=== PATIENT | male | born 1935 | race Caucasian/White ===

== ENCOUNTER 2018-10-01 08:03 | Inpatient (IN) | payer MEDICARE, BC ==
[2018-10-01] MEDS ORDERED: SODIUM CHLORIDE 0.9% 1,000 ML IV STA ×2 (08:13→09:26)
--- NOTE | 2018-10-01 08:23 | ED ---
General Adult HPI - General Stated complaint: WEAKNESS Time Seen by Provider: 10/01/18 08:13 Source: patient Mode of arrival: EMS Limitations: no limitations - History of Present Illness Initial comments: Dictation was produced using [employer] dictation software. please excuse any grammatical, word or spelling errors. Chief Complaint: 83-year-old male presents with generalized weakness History of Present Illness: 83-year-old male. Over the last several days he's been feeling more and more weak. Patient states that he doesn't have any localizing symptoms. He reports that he doesn't feel like himself. States that his symptoms are insidious. Recently was started on hydrochlorothiazide prescribed by his primary care physician. Patient does see a metal pattern maker. He saw the metal pattern maker because patient had a discrepancy of his blood pressures from his left and his right upper extremity. Patient does have scheduled aortic imaging studies. Patient denies any history of heart attack. He knows that he has a murmur. Patient has history of diabetes, hypercholesterolemia and hypertension. He has history of appendectomy and hernia repair. EMS was called because patient didn't have transportation to get to the emergency department. EMS reports that she was tachycardic however head stable vital signs. He was ambulatory on scene. Patient denies any dyspnea. Denies any pain complaints. The ROS documented in this emergency department record has been reviewed and confirmed by me. Those systems with pertinent positive or negative responses have been documented in the HPI. All other systems are other negative and/or noncontributory. PHYSICAL EXAM: General Impression: Alert and oriented x3, not in acute distress HEENT: Normocephalic atraumatic, extra-ocular movements intact, pupils equal and reactive to light bilaterally, mucous membranes moist. Cardiovascular: Grade 3-6 murmur best heard at the fourth interspace on the left chest with radiating to the cardiac apex Chest: Lungs clear to auscultation bilaterally, no rhonchi, no wheeze, no rales Abdomen: Bowel sounds present, abdomen soft, non-tender, non-distended, no organomegaly Musculoskeletal: Pulses present and equal in all extremities, no peripheral edema Motor: no focal deficits noted Neurological: CN II-XII grossly intact, no focal motor or sensory deficits noted Skin: Intact with no visualized rashes Psych: Normal affect and mood ED course: 83-year-old male presents chief complaint of generalized weakness. Signs upon arrival shows tachycardia in the 130s. EKG shows ventricular rate of 128. Not clearly discernible P waves to suggest sinus tachycardia. He does have findings of T-wave inversions in the high lateral leads and hyperacute T waves in the anterior precordial leads. Suggest cardiac ischemia likely rate dependent. Patient reports having had a echocardiogram in July however he does not know the results of those. Patient is given fluids with improvement of heart rate. Laboratory evaluation obtained. CBC, coag panel, metabolic panels obtained. Patient has sodium 127. No elevated renal markers. Rest of her Bolick panel is unremarkable. Patient has a TSH of 0.363. Urinalysis shows 1+ ketonuria. Patient's clinical pr esentation consistent with hyponatremia likely secondary to dehydration and medication side effect. Given patient's degree of symptoms and metabolic derangement we will plan to have patient admitted to the hospital for inpatient management. Family and patient are understandable and agreeable to disposition. EKG interpretation: Ventricular rate 128, QRS 106, QTC 458. No MA prolongation, no QTC prolongation, nonspecific T-wave changes. High lateral T-wave inversions and anterior precordial hyperacute T waves. - Related Data Home Medications Medication Instructions Recorded Confirmed Aspirin 81 mg PO DAILY 10/01/18 10/01/18 Hydrochlorothiazide 12.5 mg PO DAILY 10/01/18 10/01/18 Lisinopril [Zestril] 20 mg PO DAILY 10/01/18 10/01/18 Simvastatin [Zocor] 20 mg PO HS 10/01/18 10/01/18 metFORMIN HCL [Glucophage] 500 mg PO BID 10/01/18 10/01/18 Allergies Allergy/AdvReac Type Severity Reaction Status Date / Time No Known Allergies Allergy Verified 10/01/18 08:40 Review of Systems ROS Statement: Those systems with pertinent positive or pertinent negative responses have been documented in the HPI. ROS Other: All systems not noted in ROS Statement are negative. Past Medical History Past Medical History: Diabetes Mellitus, Hyperlipidemia, Hypertension Additional Past Medical History / Comment(s): murmur History of Any Multi-Drug Resistant Organisms: None Reported Past Surgical History: Appendectomy, Hernia Repair Past Psychological History: No Psychological Hx Reported Smoking Status: Never smoker Past Alcohol Use History: None Reported Past Drug Use History: None Reported General Exam Limitations: no limitations Course Vital Signs 10/01/18 10/01/18 10/01/18 08:06 08:30 08:35 Temperature 98.7 F Pulse Rate 131 H 113 H Pulse Rate [ 130 H Paint Preparer ] Respiratory 18 18 Rate Blood Pressure 100/84 98/79 O2 Sat by Pulse 99 98 Oximetry 10/01/18 09:00 Temperature Pulse Rate 107 H Pulse Rate [ Paint Preparer ] Respiratory 18 Rate Blood Pressure 98/79 O2 Sat by Pulse 99 Oximetry Medical Decision Making - Lab Data Result diagrams: 10/01/18 08:13 10/01/18 08:13 Lab Results 10/01/18 10/01/18 10/01/18 Range/Units 08:13 08:13 08:13 WBC 7.8 (3.8-10.6) k/uL RBC 5.36 (4.30-5.90) m/uL Hgb 14.8 (13.0-17.5) gm/dL Hct 45.1 (39.0-53.0) % MCV 84.1 (80.0-100.0) fL MCH 27.7 (25.0-35.0) pg MCHC 32.9 (31.0-37.0) g/dL RDW 13.5 (11.5-15.5) % Plt Count 300 (150-450) k/uL Neutrophils % 68 % Lymphocytes % 20 % Monocytes % 6 % Eosinophils % 3 % Basophils % 1 % Neutrophils # 5.3 (1.3-7.7) k/uL Lymphocytes # 1.6 (1.0-4.8) k/uL Monocytes # 0.5 (0-1.0) k/uL Eosinophils # 0.2 (0-0.7) k/uL Basophils # 0.1 (0-0.2) k/uL PT (9.0-12.0) sec INR (<1.2) APTT (22.0-30.0) sec Sodium 127 L (137-145) mmol/L Potassium 4.2 (3.5-5.1) mmol/L Chloride 92 L (98-107) mmol/L Carbon Dioxide 25 (22-30) mmol/L Anion Gap 10 mmol/L BUN 11 (9-20) mg/dL Creatinine 0.57 L (0.66-1.25) mg/dL Est GFR (CKD-EPI)AfAm >90 (>60 ml/min/1.73 sqM) Est GFR (CKD-EPI)NonAf >90 (>60 ml/min/1.73 sqM) Glucose 183 H (74-99) mg/dL Plasma Lactic Acid David (0.7-2.0) mmol/L Calcium 9.3 (8.4-10.2) mg/dL Magnesium 1.8 (1.6-2.3) mg/dL Total Bilirubin 1.7 H (0.2-1.3) mg/dL AST 31 (17-59) U/L ALT 37 (21-72) U/L Alkaline Phosphatase 43 (38-126) U/L Creatine Kinase 221 H (55-170) U/L CK-MB (CK-2) 2.5 H (0.0-2.4) ng/mL Troponin I <0.012 (0.000-0.034) ng/mL NT-Pro-B Natriuret Pep pg/mL Total Protein 6.8 (6.3-8.2) g/dL Albumin 4.2 (3.5-5.0) g/dL TSH 0.363 L (0.465-4.680) mIU/L Urine Color Urine Appearance (Clear) Urine pH (5.0-8.0) Ur Specific [place] (1.001-1.035) Urine Protein (Negative) Urine Glucose (UA) (Negative) Urine Ketones (Negative) Urine Blood (Negative) Urine Nitrite (Negative) Urine Bilirubin (Negative) Urine Urobilinogen (<2.0) mg/dL Ur Leukocyte Esterase (Negative) 10/01/18 10/01/18 10/01/18 Range/Units 08:13 08:13 08:22 WBC (3.8-10.6) k/uL RBC (4.30-5.90) m/uL Hgb (13.0-17.5) gm/dL Hct (39.0-53.0) % MCV (80.0-100.0) fL MCH (25.0-35.0) pg MCHC (31.0-37.0) g/dL RDW (11.5-15.5) % Plt Count (150-450) k/uL Neutrophils % % Lymphocytes % % Monocytes % % Eosinophils % % Basophils % % Neutrophils # (1.3-7.7) k/uL Lymphocytes # (1.0-4.8) k/uL Monocytes # (0-1.0) k/uL Eosinophils # (0-0.7) k/uL Basophils # (0-0.2) k/uL PT 10.5 (9.0-12.0) sec INR 1.0 (<1.2) APTT 27.7 (22.0-30.0) sec Sodium (137-145) mmol/L Potassium (3.5-5.1) mmol/L Chloride (98-107) mmol/L Carbon Dioxide (22-30) mmol/L Anion Gap mmol/L BUN (9-20) mg/dL Creatinine (0.66-1.25) mg/dL Est GFR (CKD-EPI)AfAm (>60 ml/min/1.73 sqM) Est GFR (CKD-EPI)NonAf (>60 ml/min/1.73 sqM) Glucose (74-99) mg/dL Plasma Lactic Acid David 1.4 (0.7-2.0) mmol/L Calcium (8.4-10.2) mg/dL Magnesium (1.6-2.3) mg/dL Total Bilirubin (0.2-1.3) mg/dL AST (17-59) U/L ALT (21-72) U/L Alkaline Phosphatase (38-126) U/L Creatine Kinase (55-170) U/L CK-MB (CK-2) (0.0-2.4) ng/mL Troponin I (0.000-0.034) ng/mL NT-Pro-B Natriuret Pep 116 pg/mL Total Protein (6.3-8.2) g/dL Albumin (3.5-5.0) g/dL TSH (0.465-4.680) mIU/L Urine Color Urine Appearance (Clear) Urine pH (5.0-8.0) Ur Specific [place] (1.001-1.035) Urine Protein (Negative) Urine Glucose (UA) (Negative) Urine Ketones (Negative) Urine Blood (Negative) Urine Nitrite (Negative) Urine Bilirubin (Negative) Urine Urobilinogen (<2.0) mg/dL Ur Leukocyte Esterase (Negative) 03/28/19 Range/Units 09:00 WBC (3.8-10.6) k/uL RBC (4.30-5.90) m/uL Hgb (13.0-17.5) gm/dL Hct (39.0-53.0) % MCV (80.0-100.0) fL MCH (25.0-35.0) pg MCHC (31.0-37.0) g/dL RDW (11.5-15.5) % Plt Count (150-450) k/uL Neutrophils % % Lymphocytes % % Monocytes % % Eosinophils % % Basophils % % Neutrophils # (1.3-7.7) k/uL Lymphocytes # (1.0-4.8) k/uL Monocytes # (0-1.0) k/uL Eosinophils # (0-0.7) k/uL Basophils # (0-0.2) k/uL PT (9.0-12.0) sec INR (<1.2) APTT (22.0-30.0) sec Sodium (137-145) mmol/L Potassium (3.5-5.1) mmol/L Chloride (98-107) mmol/L Carbon Dioxide (22-30) mmol/L Anion Gap mmol/L BUN (9-20) mg/dL Creatinine (0.66-1.25) mg/dL Est GFR (CKD-EPI)AfAm (>60 ml/min/1.73 sqM) Est GFR (CKD-EPI)NonAf (>60 ml/min/1.73 sqM) Glucose (74-99) mg/dL Plasma Lactic Acid David (0.7-2.0) mmol/L Calcium (8.4-10.2) mg/dL Magnesium (1.6-2.3) mg/dL Total Bilirubin (0.2-1.3) mg/dL AST (17-59) U/L ALT (21-72) U/L Alkaline Phosphatase (38-126) U/L Creatine Kinase (55-170) U/L CK-MB (CK-2) (0.0-2.4) ng/mL Troponin I (0.000-0.034) ng/mL NT-Pro-B Natriuret Pep pg/mL Total Protein (6.3-8.2) g/dL Albumin (3.5-5.0) g/dL TSH (0.465-4.680) mIU/L Urine Color Light Yellow Urine Appearance Clear (Clear) Urine pH 7.5 (5.0-8.0) Ur Specific [place] 1.005 (1.001-1.035) Urine Protein Trace H (Negative) Urine Glucose (UA) Negative (Negative) Urine Ketones 1+ H (Negative) Urine Blood Negative (Negative) Urine Nitrite Negative (Negative) Urine Bilirubin Negative (Negative) Urine Urobilinogen <2.0 (<2.0) mg/dL Ur Leukocyte Esterase Negative (Negative) Disposition Clinical Impression: Hyponatremia Disposition: ADMITTED IP TO THIS HOSP Condition: Fair Referrals: Maribeth Butcher MD [Primary Care Provider] - 1-2 days Decision Time: 10:40
[2018-10-01 08:51] LABS: Basophils # (A) 0.1 k/uL (0-0.2); Basophils % (A) 1 %; Eosinophils # (A) 0.2 k/uL (0-0.7); Eosinophils % (A) 3 %; HCT 45.1 % (39.0-53.0); HGB 14.8 gm/dL (13.0-17.5); Lymphocytes # (A) 1.6 k/uL (1.0-4.8); Lymphocytes % (A) 20 %; MCH 27.7 pg (25.0-35.0); MCHC 32.9 g/dL (31.0-37.0); MCV 84.1 fL (80.0-100.0); Mean Platelet Volume 6.7; Monocytes # (A) 0.5 k/uL (0-1.0); Monocytes % (A) 6 %; Neutrophils # (A) 5.3 k/uL (1.3-7.7); Neutrophils % (A) 68 %; Platelet Count 300 k/uL (150-450); RBC 5.36 m/uL (4.30-5.90); RDW 13.5 % (11.5-15.5); WBC 7.8 k/uL (3.8-10.6)
[2018-10-01 08:59] LABS: Partial Thromboplastin Time 27.7 sec (22.0-30.0); Prothrombin Time 10.5 sec (9.0-12.0)
--- NOTE | 2018-10-01 08:59 | XR ---
EXAMINATION TYPE: XR chest 2V DATE OF EXAM: 10/01/2018 COMPARISON: NONE HISTORY: Shortness of breath TECHNIQUE: Frontal and lateral views of the chest are obtained. FINDINGS: Scattered senescent parenchymal changes noted. Hyperinflation compatible with COPD. No evidence for infiltrate. No evidence for atelectasis. Heart size is stable. Mediastinal structures are stable and grossly unremarkable. No evidence for hilar prominence. Degenerative changes dorsal spine. IMPRESSION: 1. No evidence for acute pulmonary disease.
[2018-10-01 09:14] LABS: ALT 37 U/L (21-72); AST 31 U/L (17-59); Albumin 4.2 g/dL (3.5-5.0); Alkaline Phosphatase 43 U/L (38-126); Anion Gap 10 mmol/L; Blood Urea Nitrogen 11 mg/dL (9-20); Calcium 9.3 mg/dL (8.4-10.2); Carbon Dioxide 25 mmol/L (22-30); Chloride 92 mmol/L (98-107); Creatine Kinase 221 U/L (55-170); Glucose 183 mg/dL (74-99); Magnesium 1.8 mg/dL (1.6-2.3); Potassium 4.2 mmol/L (3.5-5.1); Sodium 127 mmol/L (137-145); Total Bilirubin 1.7 mg/dL (0.2-1.3); Total Protein 6.8 g/dL (6.3-8.2)
[2018-10-01 09:20] LABS: Appearance,Urine Clear (Clear); Bilirubin,Urine Negative (Negative); Blood,Urine Negative (Negative); Color,Urine Light Yellow; Glucose,Urine (UA) Negative (Negative); Ketones,Urine 1+ (Negative); Leukocyte Esterase,Urine Negative (Negative); Nitrite,Urine Negative (Negative); PH, Urine 7.5 (5.0-8.0); Protein,Urine Trace (Negative); Specific Gravity,Urine 1.005 (1.001-1.035); Urobilinogen,Urine <2.0 mg/dL (<2.0)
[2018-10-01 09:53] LABS: Creatine Kinase MB 2.5 ng/mL (0.0-2.4); Troponin I <0.012 ng/mL (0.000-0.034)
[2018-10-01] MEDS ORDERED: NALOXONE 0.4 MG/ML 1 ML VIAL IV PRN (10:36)
[2018-10-01] MEDS ORDERED: ONDANSETRON 4 MG/2 ML VIAL IVP PRN (10:36)
[2018-10-01] MEDS: SODIUM CHLORIDE 0.9% 1,000 ML IV SCH ×2 (11:14→22:12)
[2018-10-01] MEDS ORDERED: ACETAMINOPHEN TAB 500 MG TAB PO PRN (14:18)
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
[2018-10-01 16:59] LABS: Glucose,Whole Blood 125 mg/dL (75-99)
[2018-10-01] MEDS: INSULIN ASPART (NovoLOG) 100 UNIT/ML VIAL SQ SCH ×2 (16:59→22:11)
[2018-10-01] MEDS: ASPIRIN 81 MG PO SCH (17:02)
[2018-10-01 20:44] LABS: Glucose,Whole Blood 154 mg/dL (75-99)
[2018-10-01] MEDS: metFORMIN 500 MG TAB PO SCH (22:10)
[2018-10-01] MEDS: ATORVASTATIN 10 MG TAB PO SCH (22:11)
[2018-10-02 06:58] LABS: Glucose,Whole Blood 126 mg/dL (75-99)
[2018-10-02 08:29] LABS: Basophils # (A) 0.1 k/uL (0-0.2); Basophils % (A) 2 %; Eosinophils # (A) 0.2 k/uL (0-0.7); Eosinophils % (A) 3 %; HCT 41.7 % (39.0-53.0); HGB 14.7 gm/dL (13.0-17.5); Lymphocytes # (A) 2.1 k/uL (1.0-4.8); Lymphocytes % (A) 27 %; MCH 29.1 pg (25.0-35.0); MCHC 35.2 g/dL (31.0-37.0); MCV 82.7 fL (80.0-100.0); Mean Platelet Volume 6.1; Monocytes # (A) 0.6 k/uL (0-1.0); Monocytes % (A) 8 %; Neutrophils # (A) 4.8 k/uL (1.3-7.7); Neutrophils % (A) 59 %; Platelet Count 282 k/uL (150-450); RBC 5.04 m/uL (4.30-5.90); RDW 12.9 % (11.5-15.5)
[2018-10-02 08:38] LABS: ALT 32 U/L (21-72); AST 26 U/L (17-59); Albumin 3.9 g/dL (3.5-5.0); Alkaline Phosphatase 39 U/L (38-126); Anion Gap 9 mmol/L; Blood Urea Nitrogen 11 mg/dL (9-20); Calcium 9.2 mg/dL (8.4-10.2); Carbon Dioxide 24 mmol/L (22-30); Chloride 100 mmol/L (98-107); Glucose 125 mg/dL (74-99); Potassium 4.5 mmol/L (3.5-5.1); Sodium 133 mmol/L (137-145); Total Bilirubin 1.4 mg/dL (0.2-1.3); Total Protein 6.6 g/dL (6.3-8.2)
[2018-10-02] MEDS: INSULIN ASPART (NovoLOG) 100 UNIT/ML VIAL SQ SCH ×4 (09:39→20:51)
[2018-10-02] MEDS: ENOXAPARIN 40 MG/0.4 ML SYRINGE SQ SCH (09:40)
[2018-10-02] MEDS: ASPIRIN 81 MG PO SCH (09:40)
[2018-10-02] MEDS: FAMOTIDINE 20 MG TAB PO SCH (09:42)
[2018-10-02] MEDS: metFORMIN 500 MG TAB PO SCH ×2 (09:50→20:21)
[2018-10-02] MEDS: SODIUM CHLORIDE 0.9% 1,000 ML IV SCH ×2 (11:01→14:02)
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
[2018-10-02] MEDS: LISINOPRIL 20 MG TAB PO SCH (11:17)
[2018-10-02 11:54] LABS: Glucose,Whole Blood 143 mg/dL (75-99)
--- NOTE | 2018-10-02 13:14 | P.PN ---
Subjective Progress Note Date: 10/02/18 This is a 83-year-old male, patient of Dr. [place]. He has a known past medical history of diabetes mellitus type 2, hypertension and hyperlipidemia. Patient presents to the emergency room with complaints of "just not feeling right". Patient reports that symptoms started early this morning. He will his know and they called EMS to bring him in. They took vitals at home patient reports that his heart rate was elevated and blood pressure elevated. He was recently started on hydrochlorothiazide by his presentation designer to help with his elevated blood pressures. Patient reports that there have been a discrepancy in his blood pressures on the left and right arm. Per patient the right arm blood pr essure was different because of an injury to the shoulder. Patient denies any fever, chills, sweats, nausea or vomiting, bowel movement changes or urinary symptoms. Denies any chest pain or shortness of breath. He was found to have a sodium level of 127. Hyponatremia is likely related to the hydrochlorothiazide and dehydration. He was given IV fluid bolus in the ER and is currently on normal saline and a 110 cc per hour. Nephrology has been consulted. EKG had shown sinus tachycardia with a heart rate in the 130s and patient was hypotensive. Blood pressure and heart rate are showing improvement with IV fluid bolus. Cardiology has been consulted. TSH level is low at 0.363. Patient is not on any thyroid medication. EKG had shown accelerated junctional rhythm heart of 128 chest x-rays negative. Cardiology and nephrology consult. Troponin is negative urinalysis. 10/02/2018 patient's sodium level is improving. Sodium level is 133. Is currently on IV fluids. Also on fluid restrictions. Patient evaluated by nephrology. Patient's blood pressure has been elevated. His lisinopril has been restarted Norvasc was added by cardiology. Heart rate is controlled. Patient reports that he is feeling better. Denies any chest pain or shortness of breath. Denies any nausea or vomiting. Reports having bowel movements, denies any difficulty urinating. Objective - Vital Signs Vital signs: Vital Signs Temp 97.4 F L 10/02/18 04:51 Pulse 104 H 10/02/18 11:17 Resp 16 10/02/18 04:51 BP 157/71 10/02/18 11:17 Pulse Ox 98 10/02/18 04:51 Intake & Output 10/01/18 10/02/18 10/02/18 18:59 06:59 18:59 Intake Total 600 660 500 Output Total 1100 1200 Balance 600 -440 -700 Weight 74.843 kg Intake: Intake, IV Titration 600 Amount Sodium Chloride 0.9% 1, 600 000 ml @ 75 mls/hr IV . [id number] [facility] Rx#:[id number] Oral 660 500 Output: Urine 1100 1200 Other: Voiding Method Urinal # Voids 2 - Exam Head normocephalic Neck supple Lungs clear to auscultation bilaterally no wheezing or crackles Heart regular rate and rhythm S1-S2, no rub or gallop Abdomen is soft nontender nondistended positive bowel sounds no hepatosplenomegaly Extremities no edema Neuro alert and orientated to 3 - Labs CBC & Chem 7: 10/02/18 07:04 10/02/18 07:04 Labs: Abnormal Lab Results - Last 24 Hours (Table) 10/01/18 10/01/18 10/02/18 Range/Units 16:56 20:30 06:57 Sodium (137-145) mmol/L Creatinine (0.66-1.25) mg/dL Glucose (74-99) mg/dL POC Glucose (mg/dL) 125 H 154 H 126 H (75-99) mg/dL Total Bilirubin (0.2-1.3) mg/dL 10/02/18 10/02/18 Range/Units 07:04 11:54 Sodium 133 L (137-145) mmol/L Creatinine 0.58 L (0.66-1.25) mg/dL Glucose 125 H (74-99) mg/dL POC Glucose (mg/dL) 143 H (75-99) mg/dL Total Bilirubin 1.4 H (0.2-1.3) mg/dL Assessment and Plan Assessment: 1. Hypovolemic Hyponatremia: Secondary to the hydrochlorothiazide. Improving with IV fluids. Sodium 133. Seen by nephrology. Appreciate their input. Currently on normal saline at 75 mL an hour. Continue 1200 mL fluid restriction. 2. Sinus tachycardia: Cardiology consulted. Heart rate has shown improvement with IV fluids. Continue to monitor 3. Hyperthyroidism with TSH level of 0.363. Patient will follow-up with endocrinology in the outpatient setting 4. Diabetes mellitus type 2: Resume metformin and add sliding scale coverage acute Accu-Cheks every before meals and at bedtime. Check A1c 5. Essential hypertension : Blood pressures have been elevated. Nephrology has restarted the lisinopril. Cardiology has added Norvasc. Continue to monitor 6. Hyperlipidemia 7. Hypotension: Resolved. Possible discharge tomorrow GI prophylaxis Pepcid and DVT prophylaxis Lovenox I performed an examination of the patient and discussed their management with the physician Coin Rolling Machine Operator. I have reviewed the Physician Coin Rolling Machine Operator's notes and agree with the documented findings and plan of care
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
[2018-10-02] MEDS: amLODIPine 5 MG TAB PO SCH (16:00)
[2018-10-02 17:03] LABS: Glucose,Whole Blood 129 mg/dL (75-99)
[2018-10-02 20:22] LABS: Glucose,Whole Blood 173 mg/dL (75-99)
[2018-10-02] MEDS: ATORVASTATIN 10 MG TAB PO SCH (20:22)
[2018-10-02 21:13] LABS: Hemoglobin A1C 6.8 % (4.0-6.0)
[2018-10-03] MEDS: SODIUM CHLORIDE 0.9% 1,000 ML IV SCH (02:11)
[2018-10-03 06:46] LABS: Glucose,Whole Blood 137 mg/dL (75-99)
--- NOTE | 2018-10-03 08:01 | ECHOF ---
Referral Reason:ekg changes MEASUREMENTS -------- HEIGHT: 175.3 cm WEIGHT: 74.8 kg BP: IVSd: 1.1 cm (0.6 - 1.1) LVIDd: 2.9 cm (3.9 - 5.3) LVPWd: 1.1 cm (0.6 - 1.1) IVSs: 1.3 cm LVIDs: 2.2 cm LVPWs: 1.2 cm LAESV Index (A-L): 25.91 ml/m Ao Diam: 3.4 cm (2.0 - 3.7) AV Cusp: 1.5 cm (1.5 - 2.6) LA Diam: 4.0 cm (2.7 - 3.8) MV EXCURSION: 17.007 mm (> 18.000) MV EF SLOPE: 68 mm/s (70 - 150) EPSS: 0.3 cm MV E Cae: 1.44 m/s MV DecT: 159 ms MV A Ace: 0.40 m/s MV E/A Ratio: 3.59 RAP: 5.00 mmHg RVSP: 33.46 mmHg FINDINGS -------- Sinus rhythm. This was a technically adequate study. LV size, wall thickness and systolic function are normal, with an EF greater than 55%. The left isis tricular size is normal. The right ventricle is normal in size. The left atrial size is normal. Normal LA size by volume 22+/-6 ml/m2. The right atrial size is normal. There is mild aortic valve sclerosis. There is no evidence of aortic regurgitation. Mild mitral annular calcification present. Mild mitral regurgitation is present. Mild tricuspid regurgitation present. There is no evidence of pulmonary hypertension. The right v entricular systolic pressure, as measured by Doppler, is 33.46mmHg. There is no pulmonic regurgitation present. The aortic root size is normal. There is no pericardial effusion. CONCLUSIONS -------- 1. LV size, wall thickness and systolic function are normal, with an EF greater than 55%. 2. The left ventricular size is normal. 3. The right ventricle is normal in size. 4. The left atrial size is normal. 5. The right atrial size is normal. 6. There is mild aortic valve sclerosis. 7. Mild mitral annular calcification present. 8. Mild mitral regurgitation is present. 9. Mild tricuspid regurgitation present. 10. The right ventricular systolic pressure, as measured by Doppler, is 33.46mmHg. 11. There is no pulmonic regurgitation present. 12. The aortic root size is normal. 13. There is no pericardial effusion. ACCESS CONTROL SPECIALIST: Teresita Romero RDCS
[2018-10-03] MEDS: ASPIRIN 81 MG PO SCH (08:29)
[2018-10-03] MEDS: INSULIN ASPART (NovoLOG) 100 UNIT/ML VIAL SQ SCH ×4 (08:29→21:10)
[2018-10-03] MEDS: ENOXAPARIN 40 MG/0.4 ML SYRINGE SQ SCH (08:29)
[2018-10-03] MEDS: metFORMIN 500 MG TAB PO SCH ×2 (08:29→21:10)
[2018-10-03] MEDS: LISINOPRIL 20 MG TAB PO SCH (08:29)
[2018-10-03] MEDS: FAMOTIDINE 20 MG TAB PO SCH (08:31)
[2018-10-03 09:40] LABS: Basophils # (A) 0.1 k/uL (0-0.2); Basophils % (A) 1 %; Eosinophils # (A) 0.2 k/uL (0-0.7); Eosinophils % (A) 2 %; HGB 14.5 gm/dL (13.0-17.5); Lymphocytes # (A) 1.2 k/uL (1.0-4.8); Lymphocytes % (A) 15 %; MCH 27.6 pg (25.0-35.0); MCV 83.6 fL (80.0-100.0); Mean Platelet Volume 6.6; Monocytes # (A) 0.5 k/uL (0-1.0); Monocytes % (A) 6 %; Neutrophils # (A) 5.9 k/uL (1.3-7.7); Neutrophils % (A) 75 %; Platelet Count 302 k/uL (150-450); RBC 5.27 m/uL (4.30-5.90); RDW 13.9 % (11.5-15.5); WBC 7.8 k/uL (3.8-10.6)
[2018-10-03 09:46] LABS: ALT 27 U/L (21-72); AST 19 U/L (17-59); Albumin 3.8 g/dL (3.5-5.0); Alkaline Phosphatase 36 U/L (38-126); Anion Gap 11 mmol/L; Blood Urea Nitrogen 11 mg/dL (9-20); Calcium 9.4 mg/dL (8.4-10.2); Carbon Dioxide 23 mmol/L (22-30); Chloride 98 mmol/L (98-107); Glucose 193 mg/dL (74-99); Magnesium 1.8 mg/dL (1.6-2.3); Potassium 4.4 mmol/L (3.5-5.1); Sodium 132 mmol/L (137-145); Total Bilirubin 1.1 mg/dL (0.2-1.3); Total Protein 6.3 g/dL (6.3-8.2)
--- NOTE | 2018-10-03 10:46 | P.PN ---
<Carol Calle A - Last Filed: 10/03/18 11:41> Subjective Progress Note Date: 10/03/18 This is a pleasant 83-year-old male past medical history significant for hypertension, dyslipidemia and diabetes mellitus. He follows in the office with Dr. Francisco. We have asked to see him in consultation secondary to ta chycardia. He presented to the hospital yesterday via EMS after feeling generally unwell, fatigued and not himself he denies any symptoms of chest discomfort, shortness of breath, dizziness, palpitations, nausea, vomiting or diaphoresis. Upon arrival to the emergency department he was found to be hyponatremic. Sodium was 147. Last week he saw Dr. Francisco in the office secondary to uncontrolled hypertension and was started on hydrochlorothiazide. He is seen and examined resting comfortably in bed in no acute distress. He states he feels back to his baseline level of functioning. Lab repeat today shows a sodium of 133. Potassium 4.5, creatinine 0.58, magnesium 1.8, hemoglobin 14.7, platelets 282, TSH 0.363 and cardiac enzymes negative 1. Hydrochlorothiazide has been discontinued since admission and he has been started on amlodipine. Blood pressure 155/71 heart rate 104. EKG on admission reveals sinus tachycardia with T-wave inversions laterally with peaked anterior T-waves. Chest xray negative for an acute cardiopulmonary process. 10/03: Repeat lab work reveals sodium 132, potassium 4.4, chloride 98, CO2 23, BUN 11, creatinine 0.57. CBC within normal limits. Liver function tests are within normal limits. Patient's been afebrile, heart rate in the 80s to 90s and blood pressure this 40 179/76. Echocardiogram reveals EF of 55%, mild mitral regurgitation, mild tricuspid regurgitation. Repeat troponin is 0.022. Blood pressure remained elevated as patient has refused to take amlodipine as he is concerned about interaction with simvastatin. We will plan to change simvastatin to atorvastatin and patient will be able to take Norvasc. GENERAL: This is a 83-year-old male in no apparent distress at the time of my examination. HEENT: Head is atraumatic, normocephalic. Pupils are equal, round. Sclerae anicteric. Conjunctivae are clear. Mucous membranes of the mouth are moist. Neck is supple. There is no jugular venous distention. No carotid bruit is heard. LUNGS: Clear to auscultation no wheezes, rales or rhonchi. No chest wall tenderness is noted on palpation or with deep breathing. HEART: Regular rate and rhythm without murmurs, rubs or gallops. S1 and S2 heard. ABDOMEN: Soft, nontender. Bowel sounds are heard. No organomegaly noted. EXTREMITIES: No evidence of peripheral edema and no calf tenderness noted. VASCULAR: Radial and dorsalis pedis pulses palpated, no evidence of clubbing. NEUROLOGIC: Patient is awake, alert and oriented x3. ASSESSMENT Hyponatremia secondary to HCTZ, improved Acute dehydration Hypertension Dyslipidemia Diabetes mellitus PLAN Continue amlodipine. Simvastatin will be changed to atorvastatin at home. Monitor blood pressure overnight and possible discharge tomorrow Follow-up in the office with Dr. Francisco in 2-3 weeks Thank you kindly for this consultation. Nurse Practitioner note has been reviewed, I agree with a documented findings and plan of care. Patient was seen and examined. / Objective - Vital Signs Vital signs: Vital Signs Temp 97.3 F L 10/03/18 05:00 Pulse 80 10/03/18 05:00 Resp 18 10/03/18 08:00 BP 179/76 10/03/18 05:00 Pulse Ox 98 10/03/18 05:00 Intake & Output 10/02/18 10/03/18 10/03/18 18:59 06:59 18:59 Intake Total 500 1552.5 Output Total 1200 1425 250 Balance -700 127.5 -250 Intake: IV 322.5 Invasive Line 1 322.5 Intake, IV Titration 300 Amount Sodium Chloride 0.9% 1, 300 000 ml @ 75 mls/hr IV . [id number] [facility] Rx#:[id number] Oral 500 930 Output: Urine 1200 1425 250 Other: Voiding Method Urinal # Voids 1 # Bowel Movements 2 - Labs CBC & Chem 7: 10/03/18 09:02 10/03/18 09:02 Labs: Abnormal Lab Results - Last 24 Hours (Table) 10/02/18 10/02/18 10/02/18 Range/Units 11:54 13:19 17:01 Sodium (137-145) mmol/L Creatinine (0.66-1.25) mg/dL Glucose (74-99) mg/dL POC Glucose (mg/dL) 143 H 129 H (75-99) mg/dL Hemoglobin A1c 6.8 H (4.0-6.0) % Alkaline Phosphatase (38-126) U/L 10/02/18 10/03/18 10/03/18 Range/Units 20:18 06:45 09:02 Sodium 132 L (137-145) mmol/L Creatinine 0.57 L (0.66-1.25) mg/dL Glucose 193 H (74-99) mg/dL POC Glucose (mg/dL) 173 H 137 H (75-99) mg/dL Hemoglobin A1c (4.0-6.0) % Alkaline Phosphatase 36 L (38-126) U/L <Noe Francisco - Last Filed: 10/04/18 11:54> Objective - Vital Signs Vital signs: Vital Signs Temp 97.9 F 10/04/18 05:00 Pulse 87 10/04/18 05:00 Resp 18 10/04/18 05:00 BP 168/76 10/04/18 05:00 Pulse Ox 97 10/04/18 05:00 Intake & Output 10/03/18 10/04/18 10/04/18 18:59 06:59 18:59 Intake Total 120 Output Total 850 900 Balance -850 -780 Intake: Oral 120 Output: Urine 850 900 Other: Voiding Method Urinal - Labs CBC & Chem 7: 10/04/18 06:33 10/04/18 06:33 Labs: Abnormal Lab Results - Last 24 Hours (Table) 10/03/18 10/03/18 10/04/18 Range/Units 16:55 20:32 06:33 Sodium 132 L (137-145) mmol/L Chloride 97 L (98-107) mmol/L Creatinine 0.57 L (0.66-1.25) mg/dL Glucose 114 H (74-99) mg/dL POC Glucose (mg/dL) 142 H 116 H (75-99) mg/dL Total Bilirubin 1.6 H (0.2-1.3) mg/dL Alkaline Phosphatase 36 L (38-126) U/L 10/04/18 10/04/18 Range/Units 06:54 11:30 Sodium (137-145) mmol/L Chloride (98-107) mmol/L Creatinine (0.66-1.25) mg/dL Glucose (74-99) mg/dL POC Glucose (mg/dL) 119 H 122 H (75-99) mg/dL Total Bilirubin (0.2-1.3) mg/dL Alkaline Phosphatase (38-126) U/L
[2018-10-03] MEDS: amLODIPine 5 MG TAB PO SCH ×2 (11:09→12:37)
[2018-10-03 11:25] LABS: Glucose,Whole Blood 176 mg/dL (75-99)
--- NOTE | 2018-10-03 15:52 | P.PN ---
Subjective Progress Note Date: 10/03/18 This is a 83-year-old male, patient of Dr. Montana. He has a known past medical history of diabetes mellitus type 2, hypertension and hyperlipidemia. Patient presents to the emergency room with complaints of "just not feeling right". Patient reports that symptoms started early this morning. He will his know and they called EMS to bring him in. They took vitals at home patient reports that his heart rate was elevated and blood pressure elevated. He was recently started on hydrochlorothiazide by his hemmer chainstitch to help with his elevated blood pressures. Patient reports that there have been a discrepancy in his blood pressures on the left and right arm. Per patient the right arm blood pr essure was different because of an injury to the shoulder. Patient denies any fever, chills, sweats, nausea or vomiting, bowel movement changes or urinary symptoms. Denies any chest pain or shortness of breath. He was found to have a sodium level of 127. Hyponatremia is likely related to the hydrochlorothiazide and dehydration. He was given IV fluid bolus in the ER and is currently on normal saline and a 110 cc per hour. Nephrology has been consulted. EKG had shown sinus tachycardia with a heart rate in the 130s and patient was hypotensive. Blood pressure and heart rate are showing improvement with IV fluid bolus. Cardiology has been consulted. TSH level is low at 0.363. Patient is not on any thyroid medication. EKG had shown accelerated junctional rhythm heart of 128 chest x-rays negative. Cardiology and nephrology consult. Troponin is negative urinalysis. 10/02/2018 patient's sodium level is improving. Sodium level is 133. Is currently on IV fluids. Also on fluid restrictions. Patient evaluated by nephrology. Patient's blood pressure has been elevated. His lisinopril has been restarted Norvasc was added by cardiology. Heart rate is controlled. Patient reports that he is feeling better. Denies any chest pain or shortness of breath. Denies any nausea or vomiting. Reports having bowel movements, denies any difficulty urinating. On 10/03/2018 patient is alert and oriented 3 sodium is 132 blood pressure is significantly elevated Norvasc was added to regimen by cardiology patient is denying any symptoms there is no fever or chills no headache or dizziness no chest pain no shortness of breath no cough no nausea or vomiting no abdominal pain no diarrhea and no urinary symptoms Objective - Vital Signs Vital signs: Vital Signs Temp 97.7 F 10/03/18 12:41 Pulse 73 10/03/18 12:41 Resp 16 10/03/18 12:41 BP 169/77 10/03/18 12:41 Pulse Ox 98 10/03/18 12:41 Intake & Output 10/02/18 10/03/18 10/03/18 18:59 06:59 18:59 Intake Total 500 1552.5 Output Total 1200 1425 850 Balance -700 127.5 -850 Intake: IV 322.5 Invasive Line 1 322.5 Intake, IV Titration 300 Amount Sodium Chloride 0.9% 1, 300 000 ml @ 75 mls/hr IV . [id number] [facility] Rx#:[id number] Oral 500 930 Output: Urine 1200 1425 850 Other: Voiding Method Urinal # Voids 1 # Bowel Movements 2 - Exam Head normocephalic and atraumatic Neck supple no JVD no goiter Lungs clear to auscultation bilaterally no wheezing or crackles Heart regular rate and rhythm S1-S2, no rub or gallop Abdomen is soft nontender nondistended positive bowel sounds no hepatosplenomegaly Extremities no edema no cyanosis or clubbing Neuro alert and orientated to 3 no gross focal deficit - Labs CBC & Chem 7: 10/03/18 09:02 10/03/18 09:02 Labs: Abnormal Lab Results - Last 24 Hours (Table) 10/02/18 10/02/18 10/02/18 Range/Units 13:19 17:01 20:18 Sodium (137-145) mmol/L Creatinine (0.66-1.25) mg/dL Glucose (74-99) mg/dL POC Glucose (mg/dL) 129 H 173 H (75-99) mg/dL Hemoglobin A1c 6.8 H (4.0-6.0) % Alkaline Phosphatase (38-126) U/L 10/03/18 10/03/18 10/03/18 Range/Units 06:45 09:02 11:24 Sodium 132 L (137-145) mmol/L Creatinine 0.57 L (0.66-1.25) mg/dL Glucose 193 H (74-99) mg/dL POC Glucose (mg/dL) 137 H 176 H (75-99) mg/dL Hemoglobin A1c (4.0-6.0) % Alkaline Phosphatase 36 L (38-126) U/L Assessment and Plan Plan: 1. Hypovolemic Hyponatremia: Secondary to the hydrochlorothiazide. Improving with IV fluids. Sodium 133. Seen by nephrology. Appreciate their input. Currently on normal saline at 75 mL an hour. Continue 1200 mL fluid restriction. 2. Sinus tachycardia: Cardiology consulted. Heart rate has shown improvement with IV fluids. Continue to monitor 3. Hyperthyroidism with TSH level of 0.363. Patient will follow-up with endocrinology in the outpatient setting 4. Diabetes mellitus type 2: Resume metformin and add sliding scale coverage acute Accu-Cheks every before meals and at bedtime. Check A1c 5. Essential hypertension : Blood pressures have been elevated. Nephrology has restarted the lisinopril. Cardiology has added Norvasc. Continue to monitor 6. Hyperlipidemia 7. Hypotension: Resolved. Possible discharge tomorrow GI prophylaxis Pepcid and DVT prophylaxis Lovenox
--- NOTE | 2018-10-03 16:44 | P.PN ---
Subjective Progress Note Date: 10/03/18 Seen and examined for the follow-up of hyponatremia. Sodium stable at 132. Unknown baseline sodium. 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 Objective - Vital Signs Vital signs: Vital Signs Temp 97.7 F 10/03/18 12:41 Pulse 73 10/03/18 12:41 Resp 16 10/03/18 12:41 BP 169/77 10/03/18 12:41 Pulse Ox 98 10/03/18 12:41 Intake & Output 10/02/18 10/03/18 10/03/18 18:59 06:59 18:59 Intake Total 500 1552.5 Output Total 1200 1425 850 Balance -700 127.5 -850 Intake: IV 322.5 Invasive Line 1 322.5 Intake, IV Titration 300 Amount Sodium Chloride 0.9% 1, 300 000 ml @ 75 mls/hr IV . [id number] [facility] Rx#:[id number] Oral 500 930 Output: Urine 1200 1425 850 Other: Voiding Method Urinal # Voids 1 # Bowel Movements 2 - Exam No acute distress S1-S2 heard Lungs clear No edema - Labs CBC & Chem 7: 10/03/18 09:02 10/03/18 09:02 Labs: Abnormal Lab Results - Last 24 Hours (Table) 10/02/18 10/02/18 10/02/18 Range/Units 13:19 17:01 20:18 Sodium (137-145) mmol/L Creatinine (0.66-1.25) mg/dL Glucose (74-99) mg/dL POC Glucose (mg/dL) 129 H 173 H (75-99) mg/dL Hemoglobin A1c 6.8 H (4.0-6.0) % Alkaline Phosphatase (38-126) U/L 10/03/18 10/03/18 10/03/18 Range/Units 06:45 09:02 11:24 Sodium 132 L (137-145) mmol/L Creatinine 0.57 L (0.66-1.25) mg/dL Glucose 193 H (74-99) mg/dL POC Glucose (mg/dL) 137 H 176 H (75-99) mg/dL Hemoglobin A1c (4.0-6.0) % Alkaline Phosphatase 36 L (38-126) U/L Assessment and Plan Assessment: #1 acute on chronic hyponatremia. 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 #2 benign essential hypertension. #3 diabetes Plan: #1 stop IV fluids. #2 fluid restriction 40 ounces per day at discharge #3 avoid hydrochlorothiazide at discharge. #4 agree with amlodipine.
[2018-10-03 16:56] LABS: Glucose,Whole Blood 142 mg/dL (75-99)
[2018-10-03 20:33] LABS: Glucose,Whole Blood 116 mg/dL (75-99)
[2018-10-03] MEDS: ATORVASTATIN 10 MG TAB PO SCH (21:10)
[2018-10-04 05:30] VITALS: TEMP 97.9
[2018-10-04 06:55] LABS: Glucose,Whole Blood 119 mg/dL (75-99)
[2018-10-04] MEDS: INSULIN ASPART (NovoLOG) 100 UNIT/ML VIAL SQ SCH ×2 (07:19→11:43)
[2018-10-04] MEDS: FAMOTIDINE 20 MG TAB PO SCH (08:12)
[2018-10-04] MEDS: ASPIRIN 81 MG PO SCH (08:12)
[2018-10-04] MEDS: LISINOPRIL 20 MG TAB PO SCH (08:12)
[2018-10-04] MEDS: metFORMIN 500 MG TAB PO SCH (08:12)
[2018-10-04] MEDS: ENOXAPARIN 40 MG/0.4 ML SYRINGE SQ SCH (08:12)
[2018-10-04] MEDS: amLODIPine 5 MG TAB PO SCH (08:12)
[2018-10-04 08:13] LABS: ALT 27 U/L (21-72); AST 21 U/L (17-59); Albumin 4.1 g/dL (3.5-5.0); Alkaline Phosphatase 36 U/L (38-126); Anion Gap 9 mmol/L; Blood Urea Nitrogen 15 mg/dL (9-20); Calcium 9.6 mg/dL (8.4-10.2); Carbon Dioxide 26 mmol/L (22-30); Chloride 97 mmol/L (98-107); Glucose 114 mg/dL (74-99); Potassium 4.6 mmol/L (3.5-5.1); Sodium 132 mmol/L (137-145); Total Bilirubin 1.6 mg/dL (0.2-1.3); Total Protein 6.7 g/dL (6.3-8.2)
[2018-10-04 08:19] LABS: Basophils # (A) 0.1 k/uL (0-0.2); Basophils % (A) 1 %; Eosinophils # (A) 0.3 k/uL (0-0.7); Eosinophils % (A) 3 %; HCT 45.7 % (39.0-53.0); HGB 14.9 gm/dL (13.0-17.5); Lymphocytes # (A) 2.2 k/uL (1.0-4.8); Lymphocytes % (A) 26 %; MCH 27.2 pg (25.0-35.0); MCHC 32.7 g/dL (31.0-37.0); MCV 83.3 fL (80.0-100.0); Mean Platelet Volume 7.7; Monocytes # (A) 0.7 k/uL (0-1.0); Monocytes % (A) 8 %; Neutrophils # (A) 5.1 k/uL (1.3-7.7); Neutrophils % (A) 60 %; Platelet Count 317 k/uL (150-450); RBC 5.48 m/uL (4.30-5.90); RDW 13.1 % (11.5-15.5); WBC 8.5 k/uL (3.8-10.6)
--- NOTE | 2018-10-04 09:32 | P.PN ---
Subjective This is a pleasant 83-year-old male past medical history significant for hypertension, dyslipidemia and diabetes mellitus. He follows in the office with Dr. Francisco. He is seen and examined resting comfortably in bed having breakfast. He denies symptoms of chest discomfort, shortness of breath, dizziness or palpitations. Blood pressure 160/76 heart rate 87 afebrile maintaining oxygen saturation on room air. Laboratory data reviewed, WBC 8.5, hemoglobin 14.9, platelets 317, sodium 132, potassium 4.6, creatinine 0.57. Currently maintained on amlodipine 5 mg daily, aspirin 81 mg daily, atorvastatin 10 mg at bedtime, lisinopril 20 mg daily. Echocardiogram reveals preserved left ventricular systolic function with ejection fraction greater than 55%, mild MR and mild TR noted. GENERAL: This is a 83-year-old male in no apparent distress at the time of my examination. HEENT: Head is atraumatic, normocephalic. Pupils are equal, round. Sclerae anicteric. Conjunctivae are clear. Mucous membranes of the mouth are moist. Neck is supple. There is no jugular venous distention. No carotid bruit is heard. LUNGS: Clear to auscultation no wheezes, rales or rhonchi. No chest wall tenderness is noted on palpation or with deep breathing. HEART: Regular rate and rhythm without murmurs, rubs or gallops. S1 and S2 heard. ABDOMEN: Soft, nontender. Bowel sounds are heard. No organomegaly noted. EXTREMITIES: No evidence of peripheral edema and no calf tenderness noted. VASCULAR: Radial and dorsalis pedis pulses palpated, no evidence of clubbing. NEUROLOGIC: Patient is awake, alert and oriented x3. ASSESSMENT Hyponatremia secondary to HCTZ, improved Acute dehydration Hypertension Dyslipidemia Diabetes mellitus PLAN Hemodynamically stable. May be discharged home from a cardiac perspective. Follow up with Dr. Francisco, keep blood pressure journal for follow up visit. Nurse Practitioner note has been reviewed, I agree with a documented findings and plan of care. Patient was seen and examined. Objective - Vital Signs Vital signs: Vital Signs Temp 97.9 F 10/04/18 05:00 Pulse 87 10/04/18 05:00 Resp 18 10/04/18 05:00 BP 168/76 10/04/18 05:00 Pulse Ox 97 10/04/18 05:00 Intake & Output 10/03/18 10/04/18 10/04/18 18:59 06:59 18:59 Intake Total 120 Output Total 850 900 Balance -850 -780 Intake: Oral 120 Output: Urine 850 900 Other: Voiding Method Urinal - Labs CBC & Chem 7: 10/04/18 06:33 10/04/18 06:33 Labs: Abnormal Lab Results - Last 24 Hours (Table) 10/03/18 10/03/18 10/03/18 Range/Units 09:02 11:24 16:55 Sodium 132 L (137-145) mmol/L Chloride (98-107) mmol/L Creatinine 0.57 L (0.66-1.25) mg/dL Glucose 193 H (74-99) mg/dL POC Glucose (mg/dL) 176 H 142 H (75-99) mg/dL Total Bilirubin (0.2-1.3) mg/dL Alkaline Phosphatase 36 L (38-126) U/L 10/03/18 10/04/18 10/04/18 Range/Units 20:32 06:33 06:54 Sodium 132 L (137-145) mmol/L Chloride 97 L (98-107) mmol/L Creatinine 0.57 L (0.66-1.25) mg/dL Glucose 114 H (74-99) mg/dL POC Glucose (mg/dL) 116 H 119 H (75-99) mg/dL Total Bilirubin 1.6 H (0.2-1.3) mg/dL Alkaline Phosphatase 36 L (38-126) U/L
[2018-10-04 11:32] LABS: Glucose,Whole Blood 122 mg/dL (75-99)
[2018-10-04 12:22] VITALS: BP 149/73; PULSE 74; RESP 17
--- NOTE | 2018-10-04 13:26 | P.PN ---
Subjective Progress Note Date: 10/04/18 Seen and examined for the follow-up of hyponatremia. Sodium stable at 132. Unknown baseline sodium. 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 Objective - Vital Signs Vital signs: Vital Signs Temp 97.9 F 10/04/18 12:22 Pulse 74 10/04/18 12:22 Resp 17 10/04/18 12:22 BP 149/73 10/04/18 12:22 Pulse Ox 100 10/04/18 12:22 Intake & Output 10/03/18 10/04/18 10/04/18 18:59 06:59 18:59 Intake Total 120 Output Total 850 900 Balance -850 -780 Intake: Oral 120 Output: Urine 850 900 Other: Voiding Method Urinal - Exam No acute distress S1-S2 heard Lungs clear No edema - Labs CBC & Chem 7: 10/04/18 06:33 10/04/18 06:33 Labs: Abnormal Lab Results - Last 24 Hours (Table) 10/03/18 10/03/18 10/04/18 Range/Units 16:55 20:32 06:33 Sodium 132 L (137-145) mmol/L Chloride 97 L (98-107) mmol/L Creatinine 0.57 L (0.66-1.25) mg/dL Glucose 114 H (74-99) mg/dL POC Glucose (mg/dL) 142 H 116 H (75-99) mg/dL Total Bilirubin 1.6 H (0.2-1.3) mg/dL Alkaline Phosphatase 36 L (38-126) U/L 10/04/18 10/04/18 Range/Units 06:54 11:30 Sodium (137-145) mmol/L Chloride (98-107) mmol/L Creatinine (0.66-1.25) mg/dL Glucose (74-99) mg/dL POC Glucose (mg/dL) 119 H 122 H (75-99) mg/dL Total Bilirubin (0.2-1.3) mg/dL Alkaline Phosphatase (38-126) U/L Assessment and Plan Assessment: #1 acute on chronic hyponatremia. 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 #2 benign essential hypertension. #3 diabetes Plan: #1 sodium stable at 132. #2 fluid restriction to 40 ounces of liquids per day. #3 no hydrochlorothiazide at discharge. Agree with amlodipine anticipate blood pressure to get better in next few days. From nephrology point of view for discharge to be followed up in the office in 2 weeks.
--- NOTE | 2018-10-04 15:45 | P.DS ---
Providers Date of admission: 10/01/18 10:36 Expected date of discharge: 10/04/18 Attending physician: Nicole De Paz Consults: 10/01/18 10:54 Consult Physician Routine Consulting Provider: Latosha Macias Consult Reason/Comments: tachycardia Do you want consulting provider notified?: Yes 10/01/18 14:19 Consult Physician Routine Consulting Provider: Haim Anderson Consult Reason/Comments: hyponatremia Do you want consulting provider notified?: Yes Primary care physician: Maribeth Butcher Hospital Course: Diagnoses on discharge: 1. Hypovolemic Hyponatremia: Secondary to the hydrochlorothiazide and possible component of SIADH. Improving with IV fluids. Sodium 132. Seen by nephrology. Continue 1200 mL fluid restriction. Patient will need follow-up with endocrinology as outpatient unfortunately we do not have an cell phone repair technician rounding at this hospital. 2. Sinus tachycardia: Cardiology consulted. Heart rate has shown improvement with IV fluids. Continue to monitor 3. Hyperthyroidism with TSH level of 0.363. Patient will follow-up with endocrinology in the outpatient setting 4. Diabetes mellitus type 2: Resume metformin and add sliding scale coverage acute Accu-Cheks every before meals and at bedtime. Check A1c 5. Essential hypertension : Blood pressures have been elevated. Nephrology has restarted the lisinopril. Cardiology has added Norvasc. Continue to monitor 6. Hyperlipidemia 7. Hypotension, resolved with the discontinuation of hydrochlorothiazide blood pressure was on the high side and Norvasc 5 mg daily was added by cardiology patient should have his blood pressure monitored and followed up as outpatient. Hospital course: This is a 83-year-old male, patient of Dr. Montana. He has a known past medical history of diabetes mellitus type 2, hypertension and hyperlipidemia. Patient presents to the emergency room with complaints of "just not feeling right". Patient reports that symptoms started early this morning. He will his know and they called EMS to bring him in. They took vitals at home patient reports that his heart rate was elevated and blood pressure elevated. He was recently started on hydrochlorothiazide by his pharmacy technician per diem to help with his elevated blood pressures. Patient reports that there have been a discrepancy in his blood pressures on the left and right arm. Per patient the right arm blood pressure was different because of an injury to the shoulder. Patient denies any fever, chills, sweats, nausea or vomiting, bowel movement changes or urinary symptoms. Denies any chest pain or shortness of breath. He was found to have a sodium level of 127. Hyponatremia is likely related to the hydrochlorothiazide and dehydration. He was given IV fluid bolus in the ER and is currently on normal saline and a 110 cc per hour. Nephrology has been consulted. EKG had shown sinus tachycardia with a heart rate in the 130s and patient was hypotensive. Blood pressure and heart rate are showing improvement with IV fluid bolus. Cardiology has been consulted. TSH level is low at 0.363. Patient is not on any thyroid medication. EKG had shown accelerated junctional rhythm heart of 128 chest x-rays negative. Cardiology and nephrology consult. Troponin is negative urinalysis. 10/02/2018 patient's sodium level is improving. Sodium level is 133. Is currently on IV fluids. Also on fluid restrictions. Patient evaluated by nephrology. Patient's blood pressure has been elevated. His lisinopril has been restarted Norvasc was added by cardiology. Heart rate is controlled. Patient reports that he is feeling better. Denies any chest pain or shortness of breath. Denies any nausea or vomiting. Reports having bowel movements, denies any difficulty urinating. On 10/03/2018 patient is alert and oriented 3 sodium is 132 blood pressure is significantly elevated Norvasc was added to regimen by cardiology patient is denying any symptoms there is no fever or chills no headache or dizziness no chest pain no shortness of breath no cough no nausea or vomiting no abdominal pain no diarrhea and no urinary symptoms On 10/04/2018 patient was seen and examined he is doing well and having no symptoms, he was evaluated by nephrology and cardiology and was cleared for discharge, he will be discharged home Norvasc 5 mg daily was added to regimen hydrochlorothiazide was discontinued patient was advised to follow-up with his primary care physician Dr. Montana also he needs follow-up with endocrinology as outpatient for possible evaluation for SIADH and for evaluation for hyperthyroidism. Patient Condition at Discharge: Fair Plan - Discharge Summary Discharge Rx Participant: No New Discharge Prescriptions: New Atorvastatin [Lipitor] 20 mg PO HS #90 tablet amLODIPine [Norvasc] 5 mg PO DAILY #90 tab amLODIPine [Norvasc] 5 mg PO DAILY tab Continue metFORMIN HCL [Glucophage] 500 mg PO BID Lisinopril [Zestril] 20 mg PO DAILY Aspirin 81 mg PO DAILY Discontinued Simvastatin [Zocor] 20 mg PO HS Hydrochlorothiazide 12.5 mg PO DAILY Discharge Medication List Aspirin 81 mg PO DAILY 10/01/18 [History] Lisinopril [Zestril] 20 mg PO DAILY 10/01/18 [History] metFORMIN HCL [Glucophage] 500 mg PO BID 10/01/18 [History] Atorvastatin [Lipitor] 20 mg PO HS #90 tablet 10/03/18 [Rx] amLODIPine [Norvasc] 5 mg PO DAILY #90 tab 10/03/18 [Rx] amLODIPine [Norvasc] 5 mg PO DAILY tab 10/04/18 [Rx] Follow up Appointment(s)/Referral(s): Noe Francisco MD [STAFF PHYSICIAN] - 2 Weeks Maribeth Butcher MD [Primary Care Provider] - 1-2 days Patient Instructions/Handouts: Lisinopril (By mouth), Amlodipine (By mouth)
--- NOTE | 2018-10-05 07:29 | CDI ---
Documentation Clarification Form Date: 10/05/2018 7:18:50 AM From: Karen Basilio Phone: If you have a question, please contact Katelynn Fung Photographic Equipment Assembler at [phone] between 8am and 5pm. Admit Date: 10/01/2018 10:36:00 AM Patient Name: Osmar Hwang Visit Number: [id number] Discharge Date: 10/04/2018 4:06:00 PM ATTENTION: The Clinical Documentation Specialists (CDI) and [facility] Coding Staff appreciate your assistance in clarifying documentation. Please respond to the clarification below the line at the bottom and electronically sign. The CDI & [facility] [employer] Coding staff will review the response and follow-up if needed. Please note: Queries are made part of the Legal Health Record. If you have any questions, please contact the author of this message via ITS. Dr. Nicole De Paz The patient has documented sodium level of 127. Throughout chart hyponatremia is documented due to hydrochlorothiazide. But Dischrg Summary documents possible component of SIADH. History/Risk Factors: hyponatremia, hypovolemia, dehydration, sinus tachycardia Treatment: IV fluids Please clarify if patient's hyponatremia was due to hydrocholorthiazide or does patient have SIADH. Hyponatremia due to hydrochlorothiazide SIADH Other condition, please specify Unable to determine MTDD
== END 2018-10-04 16:06 | disposition home or self-care (01) | DRG 645 ==
LOC: EC 08:03 → 3NMEDONC 10:36
PROVIDERS: ADMIT Internal Medicine; ATTEND Internal Medicine
DX: E22.2 Syndrome of inappropriate secretion of antidiuretic hormone (principal); E86.1 Hypovolemia; E86.0 Dehydration; I95.2 Hypotension due to drugs; T50.2X5A Adverse effect of carbonic-anhydrase inhibitors, benzothiadiazides and other diuretics, initial encounter; E05.90 Thyrotoxicosis, unspecified without thyrotoxic crisis or storm; E11.40 Type 2 diabetes mellitus with diabetic neuropathy, unspecified; Z79.84 Long term (current) use of oral hypoglycemic drugs; E78.00 Pure hypercholesterolemia, unspecified; E78.5 Hyperlipidemia, unspecified; I10 Essential (primary) hypertension; Z79.82 Long term (current) use of aspirin; Z79.899 Other long term (current) drug therapy; Z82.49 Family history of ischemic heart disease and other diseases of the circulatory system; Z83.3 Family history of diabetes mellitus; Z90.49 Acquired absence of other specified parts of digestive tract; R00.0 Tachycardia, unspecified; Z98.42 Cataract extraction status, left eye; Z98.41 Cataract extraction status, right eye
CPT/HCPCS: 36415; 71046; 80053; 81003; 82550; 82553; 83036; 83605; 83735; 83880; 84443; 84484; 85025; 85610; 85730; 93005; 93306; 96360; 96361; 99285

== ENCOUNTER 2020-09-12 18:01 | Inpatient (IN) | payer MEDICARE, BC ==
--- NOTE | 2020-09-12 19:15 | XR ---
EXAMINATION TYPE: XR chest 1V DATE OF EXAM: 09/12/2020 COMPARISON: Chest x-ray October 01, 2018. HISTORY: Weakness. TECHNIQUE: 2 frontal supine views of the chest are obtained. FINDINGS: There is chronic parenchymal change bilaterally without focal airspace opacity, pleural ef fusion, or pneumothorax. Artifact related to overlying clothing or blanket material right lung exten ds into supraclavicular region. The cardiac silhouette size is mildly enlarged with atherosclerotic t horacic aorta. Degenerative change bilateral glenohumeral joints. IMPRESSION: Chronic changes and mild cardiomegaly without new suspicious acute pulmonary process.
--- NOTE | 2020-09-12 19:17 | XR ---
EXAMINATION TYPE: XR Hip RT and AP Pelvis DATE OF EXAM: 09/12/2020 COMPARISON: NONE HISTORY: Trauma injury with pain. TECHNIQUE: A single AP view of the pelvis is obtained. Two views of the right hip are obtained. FINDINGS: There is no acute fracture/dislocation evident in the pelvis. The sacroiliac joints show s ymmetric mild to moderate narrowing and spurring. Pubic symphysis is intact. There is moderate to sev ere axial joint space loss in both hips. Vascular calcification bilaterally extends into bilateral gr oin regions. Two views of right hip show acute impacted transcervical fracture femoral neck level right proximal f emur. The overlying soft tissue is unremarkable. IMPRESSION: There is an acute impacted transcervical fracture femoral neck level right proximal femu r.
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
[2020-09-12] MEDS ORDERED: SODIUM CHLORIDE 0.9% 1,000 ML IV ONE (19:53)
[2020-09-12 20:15] LABS: Basophils # (A) 0.1 k/uL (0-0.2); Basophils % (A) 1 %; Eosinophils # (A) 0.1 k/uL (0-0.7); Eosinophils % (A) 1 %; HCT 41.8 % (39.0-53.0); HGB 14.3 gm/dL (13.0-17.5); Lymphocytes # (A) 1.3 k/uL (1.0-4.8); Lymphocytes % (A) 9 %; MCH 28.9 pg (25.0-35.0); MCHC 34.3 g/dL (31.0-37.0); MCV 84.4 fL (80.0-100.0); Monocytes # (A) 0.8 k/uL (0-1.0); Monocytes % (A) 5 %; Neutrophils # (A) 12.9 k/uL (1.3-7.7); Neutrophils % (A) 84 %; Platelet Count 241 k/uL (150-450); RBC 4.95 m/uL (4.30-5.90); RDW 13.7 % (11.5-15.5); WBC 15.3 k/uL (3.8-10.6)
[2020-09-12] MEDS ORDERED: MORPHINE SULFATE 2 MG/ML SYRINGE IVP PRN (20:22)
[2020-09-12 20:27] LABS: ALT 26 U/L (4-49); AST 28 U/L (17-59); African American GFR (CKD) >90 (>60 ml/min/1.73 sqM); Albumin 4.4 g/dL (3.5-5.0); Alkaline Phosphatase 64 U/L (38-126); Anion Gap 11 mmol/L; Blood Urea Nitrogen 24 mg/dL (9-20); Calcium 9.8 mg/dL (8.4-10.2); Carbon Dioxide 24 mmol/L (22-30); Chloride 101 mmol/L (98-107); Glucose 200 mg/dL (74-99); Non-African American GFR(CKD) >90 (>60 ml/min/1.73 sqM); Potassium 4.1 mmol/L (3.5-5.1); Sodium 136 mmol/L (137-145); Total Bilirubin 1.1 mg/dL (0.2-1.3); Total Protein 7.2 g/dL (6.3-8.2)
[2020-09-12 20:32] LABS: Partial Thromboplastin Time 24.3 sec (22.0-30.0)
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
[2020-09-13] MEDS: ATORVASTATIN 40 MG TAB PO SCH ×2 (02:56→19:52)
[2020-09-13 07:52] LABS: Glucose,Whole Blood 161 mg/dL (75-99)
[2020-09-13] MEDS: INSULIN ASPART (NovoLOG) 100 UNIT/ML VIAL SQ SCH ×4 (08:39→20:50)
[2020-09-13] MEDS: amLODIPine 5 MG TAB PO SCH (08:39)
[2020-09-13] MEDS: HEPARIN SODIUM,PORCINE 5,000 UNIT/ML 1 ML VIAL SQ SCH ×2 (08:45→19:13)
[2020-09-13] MEDS: lisinopriL 20 MG TAB PO SCH (08:45)
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
[2020-09-13 10:23] LABS: HCT 38.9 % (39.6-50.0); HGB 12.9 g/dL (13.0-17.0); MCH 28.2 pg (27.0-32.0); MCHC 33.2 g/dL (32.0-37.0); MCV 85.1 fL (80.0-97.0); Mean Platelet Volume 9.8 fL (9.5-12.2); Platelet Count 243 X 10*3/uL (140-440); RBC 4.57 X 10*6/uL (4.40-5.60); RDW 14.2 % (11.5-14.5); WBC 9.22 X 10*3/uL (4.50-10.00)
--- NOTE | 2020-09-13 10:25 | P.PN ---
Subjective Progress Note Date: 09/13/20 No new complaints. Hip is only in pain with movemnt. Pt reports no chest pain, palps, dyspnea. Objective - Vital Signs Vital signs: Vital Signs Temp 98.1 F 09/13/20 08:00 Pulse 82 09/13/20 08:00 Resp 16 09/13/20 08:00 BP 167/67 09/13/20 08:00 Pulse Ox 98 09/13/20 08:00 Intake & Output 09/12/20 09/13/20 09/13/20 18:59 06:59 18:59 Output Total 1120 Balance -1120 Weight 72.575 kg 72.575 kg Output: Urine 1120 - Exam Gen: awake, alert HEENT: normocephalic, atraumatic, good hearing acuity, moist mucous membranes Resp: good air exchange, breathing comfortably with no accessory muscle use CVS: good distal perfusion x 4, GI: soft, NTTP, ND : no SPT, no CVAT, martinez catheter not present MSK: no pitting edema, no clubbing Neuro: non-focal, moving all extremities Psych: cooperative, euthymic mood - Labs CBC & Chem 7: 09/12/20 19:56 09/12/20 19:56 Labs: Abnormal Lab Results - Last 24 Hours (Table) 09/12/20 09/12/20 09/13/20 Range/Units 19:56 19:56 07:50 WBC 15.3 H (3.8-10.6) k/uL Neutrophils # 12.9 H (1.3-7.7) k/uL Sodium 136 L (137-145) mmol/L BUN 24 H (9-20) mg/dL Creatinine 0.62 L (0.66-1.25) mg/dL Glucose 200 H (74-99) mg/dL POC Glucose (mg/dL) 161 H (75-99) mg/dL Assessment and Plan Assessment: Traumatic Right femoral neck fracture -Defer management including pain control to Orthopedic surgery service Preoperative Evaluation -Obtain Cardiology consult for risk stratification as patient reports a pending workup including Echocardiogram and stress-test -Order Echo -Pt's METs > 4 and can proceed to surgery without further need of testing from medical standpoint Leukocytosis -reactive secondary to acute stress with no signs of active infection at this time Chronic conditions: Type 2 DM, HTN, HLD -KIN with FS -Check A1C -Hold Metformin -C/w home antihypertensives and lipitor DVT proph -Heparin
[2020-09-13 11:01] LABS: African American GFR (CKD) 99.7 (60.0-200.0); Anion Gap 7.5 mmol/L (4.00-12.00); BUN/Creat Ratio 25.71 Ratio (12.00-20.00); Calcium 9.3 mg/dL (8.7-10.3); Carbon Dioxide 26.5 mmol/L (21.6-31.8); Non-African American GFR(CKD) 86.1 (60.0-200.0); Potassium 3.9 mmol/L (3.5-5.5)
[2020-09-13] MEDS ORDERED: ONDANSETRON 4 MG/2 ML VIAL IVP PRN (11:10)
[2020-09-13] MEDS ORDERED: HYDROmorphone 0.2 MG/1 ML SYRINGE IVP PRN (11:10)
[2020-09-13] MEDS ORDERED: HYDROmorphone 0.5 MG/0.5 ML SYRINGE IVP PRN (11:10)
[2020-09-13] MEDS ORDERED: NALOXONE 0.4 MG/ML 1 ML VIAL IV PRN (11:10)
[2020-09-13 11:34] LABS: Glucose,Whole Blood 147 mg/dL (75-99)
--- NOTE | 2020-09-13 12:25 | ECHOF ---
Referral Reason:Preop eval MEASUREMENTS -------- HEIGHT: 177.8 cm WEIGHT: 72.6 kg BP: 171/62 IVSd: 1.5 cm (0.6 - 1.1) LVIDd: 3.3 cm (3.9 - 5.3) LVPWd: 1.6 cm (0.6 - 1.1) IVSs: 2.0 cm LVIDs: 2.3 cm LVPWs: 1.5 cm LAESV Index (A-L): 32.62 ml/m Ao Diam: 3.8 cm (2.0 - 3.7) AV Cusp: 1.8 cm (1.5 - 2.6) LA Diam: 4.7 cm (2.7 - 3.8) RAP: 5.00 mmHg RVSP: 33.18 mmHg FINDINGS -------- Sinus rhythm. This was a technically difficult study with suboptimal views. The left ventricular size is normal. There is moderate concentric left ventricular hypertrophy. O verall left ventricular systolic function is normal with, an EF between 55 - 60 %. The RV was not well visualized. LA is midly dilated 29-33ml/m2. The right atrium was not well visualized. 5.0mg of Lumason was utilized for enhancement of images Interatrial and interventricular septum intact. There is moderate aortic valve sclerosis. There is no evidence of aortic regurgitation. There is no evidence of aortic stenosis. Moderate mitral annular calcification present. Mild mitral regurgitation is present. The tricuspid valve appears structurally normal. Mild tricuspid regurgitation present. There is n o evidence of pulmonary hypertension. The right ventricular systolic pressure, as measured by Doppl er, is 33.18mmHg. The pulmonic valve was not well visualized. The aortic root size is normal. IVC Not well visulized. There is no pericardial effusion. CONCLUSIONS -------- 1. This was a technically difficult study with suboptimal views. 2. There is moderate concentric left ventricular hypertrophy. 3. Overall left ventricular systolic function is normal with, an EF between 55 - 60 %. 4. LA is midly dilated 29-33ml/m2. 5. There is moderate aortic valve sclerosis. 6. Moderate mitral annular calcification present. 7. Mild mitral regurgitation is present. 8. Mild tricuspid regurgitation present. 9. There is no pericardial effusion. VESSEL SPECIALIST: Marlyn Spaulding RDCS
[2020-09-13 14:54] LABS: Glucose,Whole Blood 168 mg/dL (75-99)
[2020-09-13] MEDS ORDERED: IV FLUID CONTINUATION 1,000 ML IV ONE (15:00)
[2020-09-13] MEDS ORDERED: DEXAMETHASONE SOD PHOSPHATE 4 MG/ML 1 ML VIAL IVP ONE (15:00)
[2020-09-13] MEDS ORDERED: TRANEXAMIC ACID 1,000 MG in SODIUM CHLORIDE 0.9% 100 ML IVPB ONE ×2 (15:06→15:08)
[2020-09-13] MEDS ORDERED: NEOSTIGMINE 1 MG/ML 10 ML VIAL ONE (15:25)
[2020-09-13] MEDS ORDERED: fentaNYL (PF) 50 MCG/ML 2 ML AMP ONE (15:25)
[2020-09-13] MEDS ORDERED: SODIUM CHLORIDE 0.9% 100 ML BAG ONE (15:25)
[2020-09-13] MEDS ORDERED: ROCURONIUM 10 MG/ML (5 ML VIAL) IV ONE (15:25)
[2020-09-13] MEDS ORDERED: PROPOFOL 10 MG/ML 20 ML VIAL IV ONE (15:25)
[2020-09-13] MEDS ORDERED: LIDOCAINE 1% INJ 10MG/ML (20 ML MDV) ONE (15:25)
[2020-09-13] MEDS ORDERED: GLYCOPYRROLATE 0.2 MG/ML 2 ML VIAL ONE (15:25)
[2020-09-13] MEDS ORDERED: SUCCINYLCHOLINE CHLORIDE 100 MG/5 ML SYR IV ONE (15:25)
[2020-09-13] MEDS ORDERED: KETAMINE 10 MG/ML 20 ML VIAL ONE (15:25)
[2020-09-13] MEDS ORDERED: TRANEXAMIC ACID 1,000 MG/10 ML VIAL ONE (15:25)
[2020-09-13] MEDS ORDERED: LACTATED RINGERS 1,000 ML IV ONE (17:01)
[2020-09-13 17:24] LABS: Glucose,Whole Blood 187 mg/dL (75-99)
[2020-09-13] MEDS ORDERED: HYDROmorphone 0.5 MG/0.5 ML SYRINGE IVP ONE (17:50)
[2020-09-13] MEDS ORDERED: HYDROcodone/APAP 10-325MG 1 EACH TAB PO PRN (18:21)
[2020-09-13] MEDS ORDERED: diazePAM 5 MG TAB PO PRN (18:21)
[2020-09-13] MEDS ORDERED: traMADol 50 MG TAB PO PRN (18:21)
[2020-09-13] MEDS ORDERED: TEMAZEPAM 15 MG CAP PO PRN (18:21)
[2020-09-13] MEDS ORDERED: MAGNESIUM HYDROXIDE 2,400 MG/10 ML CUP PO PRN (18:21)
--- NOTE | 2020-09-13 19:04 | XR ---
EXAMINATION TYPE: XR Hip Limited RT DATE OF EXAM: 09/13/2020 CLINICAL HISTORY: Right hip pain and osteoarthritis. TECHNIQUE: Single AP portable view of right hip is obtained immediately postoperatively. COMPARISON: 09/12/2020 FINDINGS: Metallic hardware from right hip arthroplasty is seen and appears satisfactory in alignment and position. There is evidence of recent surgery with subcutaneous gas noted laterally. IMPRESSION: Metallic hardware from right hip arthroplasty is satisfactory in position.
[2020-09-13] MEDS: LACTATED RINGERS 1,000 ML IV SCH (19:24)
[2020-09-13] MEDS: ASPIRIN 81 MG PO SCH (19:52)
[2020-09-13] MEDS: HYDROmorphone 0.5 MG/0.5 ML SYRINGE IVP PRN (19:52)
[2020-09-13] MEDS: SENNOSIDES-DOCUSATE SODIUM 1 EACH TAB PO SCH (19:52)
[2020-09-13 19:58] LABS: Glucose,Whole Blood 207 mg/dL (75-99)
[2020-09-13] MEDS ORDERED: ASPIRIN 81 MG PO SCH (21:00)
--- NOTE | 2020-09-13 21:25 | OP ---
OPERATIVE REPORT DATE OF PROCEDURE: 09/13/2020 SURGEON: Rancho Rosa MD REHABILITATION TEACHER: Scot Vargas PA-C PREOPERATIVE DIAGNOSIS: Right displaced femoral neck fracture. POSTOPERATIVE DIAGNOSIS: Right displaced femoral neck fracture. PROCEDURE PERFORMED: Right hip hemiarthroplasty. ANESTHESIA: General endotracheal. ESTIMATED BLOOD LOSS: 100 mL. TOURNIQUET: None. DRAINS: None. COMPLICATIONS: None apparent. DISPOSITION: Post-Anesthesia Care Unit. INDICATIONS: Osmar is a very pleasant 85-year-old gentleman who fell coming down off a step ladder while trying to bring down a bird house yesterday afternoon. He was brought to [facility] via ambulance. Workup, including x-rays, revealed a displaced femoral neck fracture. He was admitted to my service. He was then cleared by the medical and cardiology service for surgery. He is an independent ambulator. He does live at home with his of 67 years. He does wish to proceed with operative intervention. The risks of the procedure were discussed with him in detail. These risks include but are not limited to risk of infection, nerve damage, bleeding, pain, and a small risk of deep vein thrombosis which could lead to fatal pulmonary embolism. Further risks include periprosthetic fracture and the possibility for instability in the hip. All of his questions with regard to the risks of the procedure were answered to his satisfaction. Appropriate informed consent was obtained. DESCRIPTION OF THE PROCEDURE: The patient was identified in the preoperative holding area. Surgical site was marked by both the patient and myself. He was given 2 grams of Ancef IV for prophylactic purposes. He was then transported to the operative suite. He was placed supine on the operating room table. General anesthetic was then administered and dosed per the anesthesia department without apparent complication. He was then placed into the left lateral decubitus position, well padded in preparation for surgery. Great care was taken to ensure that his legs were appropriately padded. A well-padded axillary roll was also placed. The patient's right lower extremity was then prepped and draped in the usual sterile fashion. Standard surgical pause was undertaken to ensure that we were operating on the correct site and that appropriate preoperative antibiotics had been given. All staff in the room were in agreement and we proceeded. The outline of the greater trochanter was then marked with a surgical pen. A planned 10 to 15 cm incision centered over the tip of the greater trochanter in line with the shaft of the femur was then marked with a surgical pen. The incision was then made with a 10-blade scalpel. Dissection was carried down sharply to the tensor fascia. Hemostasis was achieved with electrocautery. The tensor fascia was then incised in line with the incision. A Charnley retractor was then placed. This exposed the underlying gluteus medius and the proximal femur. The raphae between the anterior one-third and the posterior two-thirds of the gluteus medius were identified. This was then incised with electrocautery. I then performed a Hardinge-type anterolateral approach where the gluteus medius, gluteus minimus and anterior capsule were taken off of the anterior aspect of the femur in a sleeve-type fashion. This exposed the femoral neck fracture. The hematoma was evacuated. I then utilized the cutting guide to make a fresh femoral neck cut utilizing a reciprocating saw. I then utilized the corkscrew to remove the eklutna femoral head. The acetabulum was then carefully inspected. There were no loose bodies. The acetabular cartilage was in good condition. I then sized the eklutna femoral head. It measured a size 49. A 49 trial was then placed into the acetabulum and it had a good suction fit. I then exposed the proximal femur by flexing the hip and externally rotating it. This gave me good exposure to the proximal femur. The box blank machine operator helper was then used to gain access to the femoral canal. The starting reamer was then advanced down the femoral canal. I then proceeded to ream the proximal femur. I started with a 7 mm reamer and increased incrementally up to a 10 mm reamer, where good cortical chatter was felt. I then proceeded to broach the proximal femur. I started with a size 7 broach and incrementally increased up to a size 10 broach. This had an excellent fit in the proximal femur and appeared very secure. I started with a -3 femoral neck and a trial 49 head. The hip was reduced. I then proceeded to trial a neutral neck and then a +3 neck. The hip was much more stable with a +3 neck. It had very minimal shuck and it was stable throughout a full range of motion. The trial components were then removed. The wound was thoroughly irrigated with sterile saline solution with antibiotic added. I had the branch customer service representative open a Biomet collared Bimetric stem, a +3 neck and a 49 monopolar head. The stem was then impacted into the proximal femur at approximately 10 to 15 degrees of anteversion. Again it had excellent press fit in the proximal femur. The trunnion was then dried completely and then the +3 neck was assembled with the 49 monopolar head and then impacted onto the dry femoral neck. The hip was then reduced. Again it was stable throughout a full range of motion. The leg lengths were approximately equal and it had very minimal shuck. At this point, we proceeded with closure. Again the hip was thoroughly irrigated with sterile saline solution with antibiotic added via pulse lavage. The gluteus medius, minimus and anterior capsule were repaired back to the greater trochanter utilizing 3 transosseous interrupted #5 Ethibond sutures. The raphae between the anterior third and posterior two-thirds of the gluteus medius were closed with 0 Vicryl interrupted suture. Again the wound was thoroughly irrigated. The tensor fascia was then closed with a running #2 Quill suture. The subcutaneous tissue was closed with 2-0 Vicryl interrupted suture and the skin was closed with a running 3-0 Quill suture. Dermabond was then applied to the incision. Sterile compressive dressing was applied and a hip abductor pillow was then placed between the patient's legs. All sponge and needle counts were deemed correct prior to closure. The patient tolerated the procedure without apparent complication. He was transferred to the recovery room in stable condition. DANNI / BERNICEN: [id number] /
[2020-09-14] MEDS: HEPARIN SODIUM,PORCINE 5,000 UNIT/ML 1 ML VIAL SQ SCH ×4 (00:19→23:41)
[2020-09-14] MEDS: HYDROmorphone 0.5 MG/0.5 ML SYRINGE IVP PRN ×6 (00:19→20:22)
[2020-09-14] MEDS: MULTIVITAMINS, THERA 1 EACH TAB PO SCH (07:08)
[2020-09-14] MEDS: ASPIRIN 81 MG PO SCH ×2 (07:08→20:22)
[2020-09-14] MEDS: LACTATED RINGERS 1,000 ML IV SCH ×2 (07:09→20:22)
[2020-09-14] MEDS: lisinopriL 20 MG TAB PO SCH (07:17)
[2020-09-14] MEDS: amLODIPine 5 MG TAB PO SCH (07:17)
[2020-09-14 07:21] LABS: Glucose,Whole Blood 175 mg/dL (75-99)
[2020-09-14] MEDS: INSULIN ASPART (NovoLOG) 100 UNIT/ML VIAL SQ SCH ×4 (07:32→21:11)
[2020-09-14] MEDS ORDERED: INSULIN DETEMIR (LEVEMIR) 100 UNIT/ML SYR SQ ONE (08:18)
--- NOTE | 2020-09-14 10:52 | P.PN ---
Subjective This is a pleasant 85-year-old male past medical history significant for hypertension, type 2 diabetes, AAA, hyperlipidemia. He follows in the office with Dr. Francisco. We have been asked to see in consultation for cardiac clearance. Patient is seen and examined at that time, no acute distress. Patient states that he was on a stepladder tried to fix his birdfeeder and patient missed a step and fell. Found to have an acute impacted transcervical fracture femoral neck level right proximal femur after a mechanical fall. Patient last saw Dr. Francisco in 04/2020, patient was supposed to repeat a Cardiolite stress test and echocardiogram however patient was worried about the Covid- 19 pandemic into not to these follow-up testing. He has had carotid duplex in 03/2020 which showed moderate carotid atherosclerosis and stable. Nydia cary stays active at home and does all the yard work outside.He denies history of OR or stroke. 09/14/20 Patient is postop day 1 Right hip hemiarthroplasty. Patient is seen and examined at bedside, sitting up in chair, using his incentive spriometer. Patient has been doing well, walking with physical therapy. No complaints. He denies any dizziness, syncope, palpitations, chest pain, shortness of breath, weakness, lower extremity edema. Blood pressure 135/61, heart rate 76, 96% on room air, afebrile. Echo 09/13/20 EF 55-60%, amylase mildly dilated 29-33ml/m2, moderate aortic sclerosis, mild mitral regurgitation, mild tricuspid regurgitation. Current cardiac medications include lisinopril 20 mg daily, amlodipine 10 mg daily, atorvastatin 40 mg nightly, aspirin 81 mg nightly. PHYSICAL EXAMINATION CONSTITUTIONAL: No apparent distress. HEENT: Head is normocephalic. Pupils are equal, round. Sclerae anicteric. Mucous membranes of the mouth are moist. No JVD. No carotid bruit. CHEST EXAMINATION: Lungs are clear to auscultation. No chest wall tenderness is noted on palpation or with deep breathing. HEART EXAMINATION: Regular rate and rhythm. S1, S2 heard. Systolic murmur best heard at apex, No gallops or rub. ABDOMEN: Soft, nontender. Positive bowel sounds. EXTREMITIES: 2+ peripheral pulses, no lower extremity edema and no calf tenderness. NEUROLOGIC EXAMINATION: Patient is awake, alert and oriented x3. ASSESSMENT -Hypertension -Type 2 Diabetes -Hyperlipidemia -Abdominal aortic aneursym -Right hip fracture s/p right hip hemiarthroplasty PLAN -Patient is stable from a cardiac perspective. Will will sign off at this time. Please reach out for further questions or concerns -Patient will follow up with Dr. Francisco in the office outpatient. Nurse Practitioner note has been reviewed, I agree with a documented findings and plan of care. Patient was seen and examined. Objective - Vital Signs Vital signs: Vital Signs Temp 97.5 F L 09/14/20 02:06 Pulse 76 09/14/20 02:06 Resp 12 09/14/20 02:06 BP 135/61 09/14/20 02:06 Pulse Ox 96 09/14/20 02:06 Intake & Output 09/13/20 09/14/20 09/14/20 18:59 06:59 18:59 Intake Total 1200 Output Total 100 800 300 Balance 1100 -800 -300 Weight 72.575 kg Intake: IV 1200 Output: Urine 800 300 Estimated Blood Loss 100 - Labs CBC & Chem 7: 09/13/20 07:13 09/13/20 07:13 Labs: Abnormal Lab Results - Last 24 Hours (Table) 09/13/20 09/13/20 09/13/20 Range/Units 07:13 11:33 14:52 BUN/Creatinine Ratio 25.71 H (12.00-20.00) Ratio Glucose 162 H (70-110) mg/dL POC Glucose (mg/dL) 147 H 168 H (75-99) mg/dL 09/13/20 09/13/20 09/14/20 Range/Units 17:23 19:56 07:18 BUN/Creatinine Ratio (12.00-20.00) Ratio Glucose (70-110) mg/dL POC Glucose (mg/dL) 187 H 207 H 175 H (75-99) mg/dL
[2020-09-14 11:08] LABS: HCT 37.8 % (39.6-50.0); HGB 12.5 g/dL (13.0-17.0); MCH 28.2 pg (27.0-32.0); MCHC 33.1 g/dL (32.0-37.0); MCV 85.1 fL (80.0-97.0); Mean Platelet Volume 9.9 fL (9.5-12.2); Platelet Count 251 X 10*3/uL (140-440); RBC 4.44 X 10*6/uL (4.40-5.60)
[2020-09-14 11:49] LABS: Glucose,Whole Blood 211 mg/dL (75-99)
[2020-09-14 12:41] LABS: Acanthocytes 2+; Basophils # (A) 0.02 X 10*3/uL (0.00-0.10); Basophils % (A) 0.2 %; Eosinophils # (A) 0 X 10*3/uL (0.04-0.35); Eosinophils % (A) 0 %; Lymphocytes # (A) 1.09 X 10*3/uL (0.90-5.00); Lymphocytes % (A) 9.2 %; Monocytes % (A) 13.4 %; Neutrophils # (A) 9.14 X 10*3/uL (1.80-7.70); Neutrophils % (A) 76.8 %
--- NOTE | 2020-09-14 14:57 | P.PN ---
Subjective Progress Note Date: 09/14/20 Principal diagnosis: S/P right hip bharat Patient is seen at bedside this morning. He is postop day #1 from right hip bharat arthroplasty. He has pain at the surgical site as expected but denies any new complaints. He denies numbness, tingling or calf pain. Review of systems is negative for fever, chills, chest pain, shortness of breath or other Objective - Vital Signs Vital signs: Vital Signs Temp 98.4 F 09/14/20 14:51 Pulse 77 09/14/20 14:51 Resp 18 09/14/20 14:51 BP 130/59 09/14/20 14:51 Pulse Ox 97 09/14/20 14:51 Intake & Output 09/13/20 09/14/20 09/14/20 18:59 06:59 18:59 Intake Total 1200 Output Total 100 800 800 Balance 1100 -800 -800 Weight 72.575 kg Intake: IV 1200 Output: Urine 800 800 Straight 500 Estimated Blood Loss 100 - Exam Inspection reveals a benign surgical wound. There is no active bleeding or drainage. Neurovascular status is intact throughout the lower extremity with motor and sensation fully intact. Calf is soft and nontender. 2+ dorsalis pedis pulse and less than 2 second cap refill is present. - Constitutional General appearance: Present: no acute distress - Labs CBC & Chem 7: 09/14/20 07:09 09/13/20 07:13 Labs: Abnormal Lab Results - Last 24 Hours (Table) 09/13/20 09/13/20 09/14/20 Range/Units 17:23 19:56 07:09 WBC 11.90 H (4.50-10.00) X 10*3/uL Hgb 12.5 L (13.0-17.0) g/dL Hct 37.8 L (39.6-50.0) % Immature Gran # 0.05 H (0.00-0.04) X 10*3/uL Neutrophils # 9.14 H (1.80-7.70) X 10*3/uL Monocytes # 1.60 H (0.20-1.00) X 10*3/uL Eosinophils # 0 L (0.04-0.35) X 10*3/uL POC Glucose (mg/dL) 187 H 207 H (75-99) mg/dL 09/14/20 09/14/20 Range/Units 07:18 11:46 WBC (4.50-10.00) X 10*3/uL Hgb (13.0-17.0) g/dL Hct (39.6-50.0) % Immature Gran # (0.00-0.04) X 10*3/uL Neutrophils # (1.80-7.70) X 10*3/uL Monocytes # (0.20-1.00) X 10*3/uL Eosinophils # (0.04-0.35) X 10*3/uL POC Glucose (mg/dL) 175 H 211 H (75-99) mg/dL Assessment and Plan (1) Closed right hip fracture Narrative/Plan: He will continue with routine postop orthopedic protocol including pain management, wound care, PT, DVT prophylaxis and medical management. Expect that he will transfer to home in 1-2 days Current Visit: Yes Status: Acute Priority: Medium Code(s): S72.001A - FRACTURE OF UNSP PART OF NECK OF RIGHT FEMUR, INIT SNOMED Code(s): 468104573 Time with Patient: Less than 30
--- NOTE | 2020-09-14 15:28 | P.PN ---
Subjective Progress Note Date: 09/14/20 Pt doing well today, worked well with PT/OT, pain is better controlled. No other complaints. Had post-void residual of 400cc, requiring straight cath, will continue to follow. Objective - Vital Signs Vital signs: Vital Signs Temp 98.4 F 09/14/20 14:51 Pulse 77 09/14/20 14:51 Resp 18 09/14/20 14:51 BP 130/59 09/14/20 14:51 Pulse Ox 97 09/14/20 14:51 Intake & Output 09/13/20 09/14/20 09/14/20 18:59 06:59 18:59 Intake Total 1200 Output Total 100 800 800 Balance 1100 -800 -800 Weight 72.575 kg Intake: IV 1200 Output: Urine 800 800 Straight 500 Estimated Blood Loss 100 - Exam Gen: awake, alert HEENT: normocephalic, atraumatic, good hearing acuity, moist mucous membranes Resp: good air exchange, breathing comfortably with no accessory muscle use CVS: good distal perfusion x 4, GI: soft, NTTP, ND : no SPT, no CVAT, martinez catheter not present MSK: no pitting edema, no clubbing Neuro: non-focal, moving all extremities Psych: cooperative, euthymic mood - Labs CBC & Chem 7: 09/14/20 07:09 09/13/20 07:13 Labs: Abnormal Lab Results - Last 24 Hours (Table) 09/13/20 09/13/20 09/14/20 Range/Units 17:23 19:56 07:09 WBC 11.90 H (4.50-10.00) X 10*3/uL Hgb 12.5 L (13.0-17.0) g/dL Hct 37.8 L (39.6-50.0) % Immature Gran # 0.05 H (0.00-0.04) X 10*3/uL Neutrophils # 9.14 H (1.80-7.70) X 10*3/uL Monocytes # 1.60 H (0.20-1.00) X 10*3/uL Eosinophils # 0 L (0.04-0.35) X 10*3/uL POC Glucose (mg/dL) 187 H 207 H (75-99) mg/dL 03/11/21 03/11/21 Range/Units 07:18 11:46 WBC (4.50-10.00) X 10*3/uL Hgb (13.0-17.0) g/dL Hct (39.6-50.0) % Immature Gran # (0.00-0.04) X 10*3/uL Neutrophils # (1.80-7.70) X 10*3/uL Monocytes # (0.20-1.00) X 10*3/uL Eosinophils # (0.04-0.35) X 10*3/uL POC Glucose (mg/dL) 175 H 211 H (75-99) mg/dL Assessment and Plan Assessment: Traumatic Right femoral neck fracture -Defer management including pain control to Orthopedic surgery service Preoperative Evaluation -Pt's METs > 4 and can proceed to surgery without further need of testing from medical standpoint Leukocytosis -reactive secondary to acute stress with no signs of active infection at this time Chronic conditions: Type 2 DM, HTN, HLD -KIN with FS + 5U levemir -Check A1C, not drawn -Hold Metformin -C/w home antihypertensives and lipitor DVT proph -Heparin
[2020-09-14 17:05] LABS: Glucose,Whole Blood 178 mg/dL (75-99)
[2020-09-14] MEDS: ATORVASTATIN 40 MG TAB PO SCH (20:22)
[2020-09-14] MEDS: SENNOSIDES-DOCUSATE SODIUM 1 EACH TAB PO SCH (20:22)
[2020-09-14 20:52] LABS: Glucose,Whole Blood 215 mg/dL (75-99)
[2020-09-15] MEDS ORDERED: INSULIN DETEMIR (LEVEMIR) 100 UNIT/ML SYR SQ SCH ×2 (07:00→21:00)
[2020-09-15 07:06] LABS: Glucose,Whole Blood 173 mg/dL (75-99)
[2020-09-15] MEDS: ASPIRIN 81 MG PO SCH ×2 (07:26→21:09)
[2020-09-15] MEDS: amLODIPine 5 MG TAB PO SCH (07:26)
[2020-09-15] MEDS: lisinopriL 20 MG TAB PO SCH (07:27)
[2020-09-15] MEDS: HEPARIN SODIUM,PORCINE 5,000 UNIT/ML 1 ML VIAL SQ SCH ×2 (07:27→15:39)
[2020-09-15] MEDS: INSULIN ASPART (NovoLOG) 100 UNIT/ML VIAL SQ SCH ×4 (07:27→21:11)
[2020-09-15] MEDS ORDERED: Acetaminophen-Codeine 300-30mg TAB PO PRN ×2 (07:48)
[2020-09-15] MEDS: HYDROcodone/APAP 5-325MG 1 EACH TAB PO PRN ×3 (09:59→21:10)
[2020-09-15] MEDS: LACTATED RINGERS 1,000 ML IV SCH ×2 (10:22→21:11)
--- NOTE | 2020-09-15 10:31 | P.PN ---
Subjective Progress Note Date: 09/15/20 Principal diagnosis: S/P right hip bharat Patient is seen at bedside this morning. He is postop day #2 from right hip bharat arthroplasty. He has pain at the surgical site as expected but denies any new complaints. He denies numbness, tingling or calf pain. Review of systems is negative for fever, chills, chest pain, shortness of breath or other Objective - Vital Signs Vital signs: Vital Signs Temp 98.2 F 09/15/20 08:00 Pulse 92 09/15/20 08:00 Resp 16 09/15/20 08:00 BP 146/67 09/15/20 08:00 Pulse Ox 98 09/15/20 08:00 Intake & Output 09/14/20 09/15/20 09/15/20 18:59 06:59 18:59 Output Total 800 100 425 Balance -800 -100 -425 Output: Urine 800 100 425 Straight 500 - Exam Inspection reveals a benign surgical wound. There is no active bleeding or drainage. Neurovascular status is intact throughout the lower extremity with motor and sensation fully intact. Calf is soft and nontender. 2+ dorsalis pedis pulse and less than 2 second cap refill is present. - Constitutional General appearance: Present: no acute distress - Labs CBC & Chem 7: 09/14/20 07:09 09/13/20 07:13 Labs: Abnormal Lab Results - Last 24 Hours (Table) 09/14/20 09/14/20 09/14/20 Range/Units 07:09 11:46 17:02 WBC 11.90 H (4.50-10.00) X 10*3/uL Hgb 12.5 L (13.0-17.0) g/dL Hct 37.8 L (39.6-50.0) % Immature Gran # 0.05 H (0.00-0.04) X 10*3/uL Neutrophils # 9.14 H (1.80-7.70) X 10*3/uL Monocytes # 1.60 H (0.20-1.00) X 10*3/uL Eosinophils # 0 L (0.04-0.35) X 10*3/uL POC Glucose (mg/dL) 211 H 178 H (75-99) mg/dL 09/14/20 09/15/20 Range/Units 20:51 07:03 WBC (4.50-10.00) X 10*3/uL Hgb (13.0-17.0) g/dL Hct (39.6-50.0) % Immature Gran # (0.00-0.04) X 10*3/uL Neutrophils # (1.80-7.70) X 10*3/uL Monocytes # (0.20-1.00) X 10*3/uL Eosinophils # (0.04-0.35) X 10*3/uL POC Glucose (mg/dL) 215 H 173 H (75-99) mg/dL Assessment and Plan (1) Closed right hip fracture Narrative/Plan: He will continue with routine postop orthopedic protocol including pain manageme nt, wound care, PT, DVT prophylaxis and medical management. Expect that he will transfer to home tomorrow Current Visit: Yes Status: Acute Priority: Medium Code(s): S72.001A - FRACTURE OF UNSP PART OF NECK OF RIGHT FEMUR, INIT SNOMED Code(s): 118480341 Time with Patient: Less than 30
--- NOTE | 2020-09-15 10:39 | P.PN ---
Subjective Progress Note Date: 09/15/20 No new complaints at this time. Working well with PT, pain is well controlled. Patient is motivated to improve safely. Objective - Vital Signs Vital signs: Vital Signs Temp 98.2 F 09/15/20 08:00 Pulse 92 09/15/20 08:00 Resp 16 09/15/20 08:00 BP 146/67 09/15/20 08:00 Pulse Ox 98 09/15/20 08:00 Intake & Output 09/14/20 09/15/20 09/15/20 18:59 06:59 18:59 Output Total 800 100 425 Balance -800 -100 -425 Output: Urine 800 100 425 Straight 500 - Exam Gen: awake, alert HEENT: normocephalic, atraumatic, good hearing acuity, moist mucous membranes Resp: good air exchange, breathing comfortably with no accessory muscle use CVS: good distal perfusion x 4, GI: soft, NTTP, ND : no SPT, no CVAT, martinez catheter not present MSK: no pitting edema, no clubbing Neuro: non-focal, moving all extremities Psych: cooperative, euthymic mood - Labs CBC & Chem 7: 09/14/20 07:09 09/13/20 07:13 Labs: Abnormal Lab Results - Last 24 Hours (Table) 09/14/20 09/14/20 09/14/20 Range/Units 07:09 11:46 17:02 WBC 11.90 H (4.50-10.00) X 10*3/uL Hgb 12.5 L (13.0-17.0) g/dL Hct 37.8 L (39.6-50.0) % Immature Gran # 0.05 H (0.00-0.04) X 10*3/uL Neutrophils # 9.14 H (1.80-7.70) X 10*3/uL Monocytes # 1.60 H (0.20-1.00) X 10*3/uL Eosinophils # 0 L (0.04-0.35) X 10*3/uL POC Glucose (mg/dL) 211 H 178 H (75-99) mg/dL 09/14/20 09/15/20 Range/Units 20:51 07:03 WBC (4.50-10.00) X 10*3/uL Hgb (13.0-17.0) g/dL Hct (39.6-50.0) % Immature Gran # (0.00-0.04) X 10*3/uL Neutrophils # (1.80-7.70) X 10*3/uL Monocytes # (0.20-1.00) X 10*3/uL Eosinophils # (0.04-0.35) X 10*3/uL POC Glucose (mg/dL) 215 H 173 H (75-99) mg/dL Assessment and Plan Assessment: Traumatic Right femoral neck fracture -Defer management including pain control to Orthopedic surgery service Preoperative Evaluation -Pt's METs > 4 and can proceed to surgery without further need of testing from medical standpoint Leukocytosis -reactive secondary to acute stress with no signs of active infection at this time Chronic conditions: Type 2 DM, HTN, HLD -KIN with FS + 10U levemir -Check A1C, not drawn -Hold Metformin -C/w home antihypertensives and lipitor DVT proph -Heparin
[2020-09-15 11:26] LABS: Glucose,Whole Blood 220 mg/dL (75-99)
[2020-09-15] MEDS: MULTIVITAMINS, THERA 1 EACH TAB PO SCH (12:06)
[2020-09-15 14:15] LABS: Hemoglobin A1C 6.4 % (4.0-6.0)
[2020-09-15] MEDS ORDERED: LIDOCAINE 1% INJ 10MG/ML (20 ML MDV) ONE (15:25)
[2020-09-15] MEDS ORDERED: PROPOFOL 10 MG/ML 20 ML VIAL IV ONE (15:25)
[2020-09-15] MEDS ORDERED: SUCCINYLCHOLINE CHLORIDE 100 MG/5 ML SYR IV ONE (15:25)
[2020-09-15] MEDS ORDERED: TRANEXAMIC ACID 1,000 MG/10 ML VIAL ONE (15:25)
[2020-09-15] MEDS ORDERED: ROCURONIUM 10 MG/ML (5 ML VIAL) IV ONE (15:25)
[2020-09-15] MEDS ORDERED: GLYCOPYRROLATE 0.2 MG/ML 2 ML VIAL ONE (15:25)
[2020-09-15] MEDS ORDERED: fentaNYL (PF) 50 MCG/ML 2 ML AMP ONE (15:25)
[2020-09-15] MEDS ORDERED: NEOSTIGMINE 1 MG/ML 10 ML VIAL ONE (15:25)
[2020-09-15] MEDS ORDERED: KETAMINE 10 MG/ML 20 ML VIAL ONE (15:25)
[2020-09-15] MEDS ORDERED: SODIUM CHLORIDE 0.9% 100 ML BAG ONE (15:25)
[2020-09-15 16:52] LABS: Glucose,Whole Blood 204 mg/dL (75-99)
[2020-09-15 20:06] VITALS: RESP 20; TEMP 98.2
[2020-09-15 20:36] LABS: Glucose,Whole Blood 208 mg/dL (75-99)
[2020-09-15] MEDS: ATORVASTATIN 40 MG TAB PO SCH (21:09)
[2020-09-15] MEDS: SENNOSIDES-DOCUSATE SODIUM 1 EACH TAB PO SCH (21:09)
[2020-09-16] MEDS: HEPARIN SODIUM,PORCINE 5,000 UNIT/ML 1 ML VIAL SQ SCH ×2 (01:05→07:34)
[2020-09-16 03:26] VITALS: BP 121/65; PULSE 84
[2020-09-16 06:23] LABS: Basophils # (A) 0.1 k/uL (0-0.2); Basophils % (A) 1 %; Eosinophils # (A) 0.2 k/uL (0-0.7); Eosinophils % (A) 2 %; HCT 26.8 % (39.0-53.0); Lymphocytes % (A) 23 %; MCH 29.2 pg (25.0-35.0); MCHC 34.7 g/dL (31.0-37.0); Mean Platelet Volume 7.5; Monocytes # (A) 0.9 k/uL (0-1.0); Monocytes % (A) 10 %; Neutrophils # (A) 5.3 k/uL (1.3-7.7); Neutrophils % (A) 62 %; Platelet Count 203 k/uL (150-450); RBC 3.18 m/uL (4.30-5.90); RDW 13.7 % (11.5-15.5); WBC 8.6 k/uL (3.8-10.6)
[2020-09-16 06:29] LABS: HGB 9.3 gm/dL (13.0-17.5)
[2020-09-16] MEDS: MULTIVITAMINS, THERA 1 EACH TAB PO SCH (07:34)
[2020-09-16] MEDS: ASPIRIN 81 MG PO SCH (07:34)
[2020-09-16] MEDS: INSULIN ASPART (NovoLOG) 100 UNIT/ML VIAL SQ SCH ×2 (07:34→11:42)
[2020-09-16] MEDS: amLODIPine 5 MG TAB PO SCH (07:34)
[2020-09-16] MEDS: lisinopriL 20 MG TAB PO SCH (07:34)
[2020-09-16 08:18] LABS: Glucose,Whole Blood 160 mg/dL (75-99)
--- NOTE | 2020-09-16 11:09 | P.DS ---
Providers Date of admission: 09/12/20 20:01 Expected date of discharge: 09/16/20 Attending physician: Rancho Rosa Consults: 09/12/20 19:53 Consult Physician Urgent Consulting Provider: Roxanna Diaz Consult Reason/Comments: Medical clearance Do you want consulting provider notified?: Yes 09/13/20 02:32 Consult Physician Urgent Consulting Provider: Bebo Leblanc Consult Reason/Comments: Pre-op evaluation in patient w/ suspected CAD and CHF Do you want consulting provider notified?: Yes Primary care physician: Maribeth Butcher - Discharge Diagnosis(es) (1) Fracture of femoral neck, right Current Visit: Yes Status: Acute (2) Status post fall Current Visit: Yes Status: Acute (3) Acute right hip pain Current Visit: Yes Status: Acute (4) Diabetes mellitus Current Visit: Yes Status: Acute (5) Hyperlipidemia Current Visit: Yes Status: Acute (6) Abdominal aortic aneurysm Current Visit: Yes Status: Acute (7) Hypertension Current Visit: Yes Status: Acute Hospital Course: Discharge This is a pleasant 85-year-old male who presented with a right femoral neck fracture status post fall who was admitted for further treatment. He underwent a right hip hemiarthroplasty performed by Dr. Rancho Rosa on 09/13/2020. The patient tolerated the procedure well and did well postoperatively. He has been able to ambulate hallways. His pain is been well-controlled. He feels that he is ready for discharge today. Condition on day of discharge stable. Patient will be discharged home. Patient was cleared preoperatively for surgery by ascending and cardiology. Patient currently denies any nausea, vomiting, fever, or chills. Patient is eating and voiding freely without difficulty. He has not had a bowel movement that his abdomen is soft nontender and he is passing gas. Dressings over the right hip remains clean, dry, and intact. Patient may remove dressing and shower without a dressing intact if dressing remains dry over the next 72 hours. He may continue weightbearing the right lower extremity as tolerated. Take medications as prescribed. Patient may resume other previously prescribed medications. MAPS has been previously reviewed. An "Opiod Start Talking" Form has been signed and placed in the patient's chart. A prescription has been written for Carbon 5 mg/325 mg 1 tab every 4 hours as needed for pain, dispense #42. Patient is also given a prescription for aspirin 81 mg 1 tablet twice a day, dispensed #60. This medication should be taken until completion of the prescription. Patient given a prescription for Colace 100 mg twice a day dispensed #60 for constipation. Patient's other medical diagnoses include diabetes mellitus, hyperlipidemia, abdominal aortic aneurysm and hypertension. Physical Exam Hip Hemiarthroplasty: Status post surgical day number 3 Patient is examined sitting bedside upright in a chair Patient is awake, alert, and oriented 3 Vital signs stable Good chest excursion with deep inspiration and expiration Abdomen soft nontender No signs or symptoms of DVT; no calf pain Lower extremity cuffs not currently in place bilaterally Dressing of the hip is clean, dry, and intact; no erythema, purulence, or signs of infection No significant pain with palpation over the surgical site Full range of motion of ankles bilaterally AFO brace intact at the right lower extremity following chronic foot drop over the past 60 years following injury Neurovascularly intact bilateral lower extremities Procedures: Right hip hemiarthroplasty Patient Condition at Discharge: Stable Plan - Discharge Summary Discharge Rx Participant: No New Discharge Prescriptions: New Aspirin [Adult Low Dose Aspirin EC] 81 mg PO BID #60 tablet.dr Turnerte [Colace] 100 mg PO BID #60 capsule HYDROcodone/APAP 5-325MG [Carbon 5-325] 1 tab PO Q4HR PRN #42 tab PRN Reason: Pain No Action metFORMIN HCL [Glucophage] 500 mg PO BID lisinopriL [Zestril] 20 mg PO DAILY Aspirin 81 mg PO HS Sodium Chloride Tab 1 gm PO DAILY amLODIPine [Norvasc] 10 mg PO DAILY Atorvastatin Calcium [Lipitor] 40 mg PO HS Discharge Medication List Aspirin 81 mg PO HS 10/01/18 [History] lisinopriL [Zestril] 20 mg PO DAILY 10/01/18 [History] metFORMIN HCL [Glucophage] 500 mg PO BID 10/01/18 [History] Atorvastatin Calcium [Lipitor] 40 mg PO HS 09/12/20 [History] Sodium Chloride Tab 1 gm PO DAILY 09/12/20 [History] amLODIPine [Norvasc] 10 mg PO DAILY 09/12/20 [History] Aspirin [Adult Low Dose Aspirin EC] 81 mg PO BID #60 tablet. 09/15/20 [Rx] Docusate [Colace] 100 mg PO BID #60 capsule 09/15/20 [Rx] HYDROcodone/APAP 5-325MG [Carbon 5-325] 1 tab PO Q4HR PRN #42 tab 09/15/20 [Rx] Follow up Appointment(s)/Referral(s): Noe Francisco MD [STAFF PHYSICIAN] - 2 Weeks [facility] [NON-STAFF] - (Please call [facility] if you have questions about your new walker) [facility], [NON-STAFF] - ([facility] will call you to set up your first visit. Your first visit should be the day after you discharge from the hospital. ) Maribeth Butcher MD [Primary Care Provider] - 1-2 days Rancho Rosa MD [STAFF PHYSICIAN] - 10 Days Patient Instructions/Handouts: Precautions after Total Joint Replacement Surgery (DC), Joint Replacement Surgery (DC) Activity/Diet/Wound Care/Special Instructions: Keep wound clean and dry Take meds as directed Follow-up with Dr. Rosa in office Weight bear as tolerated May shower in 3 days if no bleeding Discharge Disposition: HOME SELF-CARE
[2020-09-16 11:34] LABS: Glucose,Whole Blood 257 mg/dL (75-99)
[2020-09-16] MEDS: LACTATED RINGERS 1,000 ML IV SCH (11:39)
[2020-09-16] MEDS: HYDROcodone/APAP 5-325MG 1 EACH TAB PO PRN (11:48)
--- NOTE | 2020-09-16 14:20 | P.PN ---
Subjective Progress Note Date: 09/16/20 No new complaints today. Objective - Vital Signs Vital signs: Vital Signs Temp 98.2 F 09/16/20 01:35 Pulse 84 09/16/20 01:35 Resp 20 09/16/20 01:35 BP 121/65 09/16/20 01:35 Pulse Ox 97 09/16/20 01:35 Intake & Output 09/15/20 09/16/20 09/16/20 18:59 06:59 18:59 Output Total 575 550 500 Balance -575 -550 -500 Output: Urine 575 550 500 Other: Voiding Method Urinal # Bowel Movements 0 - Exam Gen: awake, alert HEENT: normocephalic, atraumatic, good hearing acuity, moist mucous membranes Resp: good air exchange, breathing comfortably with no accessory muscle use CVS: good distal perfusion x 4, GI: soft, NTTP, ND : no SPT, no CVAT, martinez catheter not present MSK: no pitting edema, no clubbing Neuro: non-focal, moving all extremities Psych: cooperative, euthymic mood - Labs CBC & Chem 7: 09/16/20 06:08 09/13/20 07:13 Labs: Abnormal Lab Results - Last 24 Hours (Table) 09/15/20 09/15/20 09/16/20 Range/Units 16:40 20:26 06:08 RBC 3.18 L (4.30-5.90) m/uL Hgb 9.3 L D (13.0-17.5) gm/dL Hct 26.8 L (39.0-53.0) % POC Glucose (mg/dL) 204 H 208 H (75-99) mg/dL 09/16/20 09/16/20 Range/Units 07:21 11:23 RBC (4.30-5.90) m/uL Hgb (13.0-17.5) gm/dL Hct (39.0-53.0) % POC Glucose (mg/dL) 160 H 257 H (75-99) mg/dL Assessment and Plan Assessment: Traumatic Right femoral neck fracture -Defer management including pain control to Orthopedic surgery service Preoperative Evaluation -Pt's METs > 4 and can proceed to surgery without further need of testing from medical standpoint Leukocytosis -reactive secondary to acute stress with no signs of active infection at this time Chronic conditions: Type 2 DM, HTN, HLD -KIN with FS + 10U levemir -Check A1C, not drawn -Hold Metformin -C/w home antihypertensives and lipitor DVT proph -Heparin Medically cleared for discharge, no changes to home meds. Will require PCP f/u for repeat A1c check; goal A1c < 8.0%
== END 2020-09-16 12:32 | disposition home health service (06) | DRG 522 ==
LOC: EC 18:01 → 4SSUR 20:01
PROVIDERS: ADMIT Orthopaedic Surgery Sports Medicine; ATTEND Orthopaedic Surgery Sports Medicine
PROC: 0SRR0JA Replacement of Right Hip Joint, Femoral Surface with Synthetic Substitute, Uncemented, Open Approach (ICD-10-PCS; principal; 2020-09-13 12:55)
DX: S72.031A Displaced midcervical fracture of right femur, initial encounter for closed fracture (principal); E11.41 Type 2 diabetes mellitus with diabetic mononeuropathy; Z20.822 Contact with and (suspected) exposure to COVID-19; E78.5 Hyperlipidemia, unspecified; I10 Essential (primary) hypertension; H26.9 Unspecified cataract; R00.0 Tachycardia, unspecified; M21.371 Foot drop, right foot; D72.829 Elevated white blood cell count, unspecified; I71.4 Abdominal aortic aneurysm, without rupture; I65.29 Occlusion and stenosis of unspecified carotid artery; I44.0 Atrioventricular block, first degree; I08.3 Combined rheumatic disorders of mitral, aortic and tricuspid valves; K59.00 Constipation, unspecified; W11.XXXA Fall on and from ladder, initial encounter; Y92.009 Unspecified place in unspecified non-institutional (private) residence as the place of occurrence of the external cause; Z79.84 Long term (current) use of oral hypoglycemic drugs; Z79.82 Long term (current) use of aspirin; Z79.899 Other long term (current) drug therapy; Z90.49 Acquired absence of other specified parts of digestive tract; Z98.890 Other specified postprocedural states; Z87.828 Personal history of other (healed) physical injury and trauma; Z82.49 Family history of ischemic heart disease and other diseases of the circulatory system; Z83.3 Family history of diabetes mellitus
CPT/HCPCS: 36415; 71045; 73501; 73502; 80048; 80053; 83036; 85025; 85027; 85610; 85730; 87635; 88305; 88311; 93005; 93306; 96360; 96361; 99285

== ENCOUNTER → 2020-10-12 | Outpatient (CLI) | payer MEDICARE, BC ==
--- NOTE | 2020-10-12 15:43 | US ---
EXAMINATION TYPE: US venous doppler duplex LE BI DATE OF EXAM: 10/12/2020 3:31 PM COMPARISON: NONE CLINICAL HISTORY: R79.1, R22.41, R22.42. SIDE PERFORMED: Bilateral TECHNIQUE: The lower extremity deep venous system is examined utilizing real time linear array sonog oksana with graded compression, doppler sonography and color-flow sonography. VESSELS IMAGED: Common Femoral Vein Deep Femoral Vein Greater Saphenous Vein * Femoral Vein Popliteal Vein Small Saphenous Vein * Proximal Calf Veins (* superficial vessels) Right Leg: Negative for DVT Left Leg: Negative for DVT Left leg Paz's cyst measuring 4.4 x 1.1 x 1.3cm IMPRESSION: No evidence for DVT.
== END | disposition home or self-care (01) ==
LOC: RADUSWWP 14:57
PROVIDERS: ATTEND Family Medicine
DX: R22.43 Localized swelling, mass and lump, lower limb, bilateral (principal); R79.1 Abnormal coagulation profile
CPT/HCPCS: 93970

== ENCOUNTER → 2020-10-12 | Outpatient (CLI) | payer MEDICARE, BC ==
[2020-10-12 07:41] LABS: Basophils # (A) 0.1 k/uL (0-0.2); Basophils % (A) 2 %; Eosinophils # (A) 0.2 k/uL (0-0.7); Eosinophils % (A) 4 %; HCT 32.9 % (39.0-53.0); HGB 11.2 gm/dL (13.0-17.5); Lymphocytes # (A) 2.1 k/uL (1.0-4.8); Lymphocytes % (A) 32 %; MCH 29.3 pg (25.0-35.0); MCHC 34.1 g/dL (31.0-37.0); MCV 86.1 fL (80.0-100.0); Mean Platelet Volume 6.5; Monocytes # (A) 0.6 k/uL (0-1.0); Monocytes % (A) 10 %; Neutrophils # (A) 3.3 k/uL (1.3-7.7); Neutrophils % (A) 52 %; Platelet Count 318 k/uL (150-450); RBC 3.82 m/uL (4.30-5.90); RDW 15.1 % (11.5-15.5); WBC 6.4 k/uL (3.8-10.6)
[2020-10-12 07:58] LABS: ALT 14 U/L (4-49); AST 22 U/L (17-59); African American GFR (CKD) >90 (>60 ml/min/1.73 sqM); Albumin 3.7 g/dL (3.5-5.0); Albumin/Globulin Ratio 1.3; Alkaline Phosphatase 80 U/L (38-126); Anion Gap 5 mmol/L; Blood Urea Nitrogen 17 mg/dL (9-20); Calcium 9.8 mg/dL (8.4-10.2); Carbon Dioxide 27 mmol/L (22-30); Chloride 97 mmol/L (98-107); Cholesterol 109 mg/dL (<200); Creatine Kinase 35 U/L (55-170); Globulin 2.9 g/dL; Glucose 126 mg/dL (74-99); HDL Cholesterol 51 mg/dL (40-60); LDH 422 U/L (313-618); LDL Cholesterol,Calculated 49 mg/dL (0-99); Magnesium 1.7 mg/dL (1.6-2.3); Non-African American GFR(CKD) >90 (>60 ml/min/1.73 sqM); Potassium 4.5 mmol/L (3.5-5.1); Sodium 129 mmol/L (137-145); Total Bilirubin 1.1 mg/dL (0.2-1.3); Total Protein 6.6 g/dL (6.3-8.2); Triglycerides 47 mg/dL (<150); Uric Acid 3.1 mg/dL (3.5-8.5)
[2020-10-12 09:32] LABS: Appearance,Urine Clear (Clear); Bilirubin,Urine Negative (Negative); Blood,Urine Negative (Negative); Color,Urine Light Yellow; Glucose,Urine (UA) Negative (Negative); Ketones,Urine Negative (Negative); Leukocyte Esterase,Urine Negative (Negative); Nitrite,Urine Negative (Negative); PH, Urine 6.5 (5.0-8.0); Protein,Urine Negative (Negative); Urobilinogen,Urine <2.0 mg/dL (<2.0)
[2020-10-12 19:00] LABS: Urine Creatinine 48.3 mg/dL
== END | disposition home or self-care (01) ==
LOC: LABWHC1 07:04
PROVIDERS: ATTEND Family Medicine
DX: E78.5 Hyperlipidemia, unspecified (principal); I10 Essential (primary) hypertension; E11.9 Type 2 diabetes mellitus without complications; M79.89 Other specified soft tissue disorders
CPT/HCPCS: 36415; 80053; 80061; 81003; 82043; 82550; 82570; 83615; 83735; 83880; 84443; 84550; 85025; 85379

== ENCOUNTER → 2024-04-14 | Outpatient (CLI) | payer MEDICARE, BC ==
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
== END | disposition home or self-care (01) ==
LOC: RADFLMAIN 11:02
PROVIDERS: ATTEND Otolaryngology Pediatric Otolaryngology
DX: R13.12 Dysphagia, oropharyngeal phase (principal)
CPT/HCPCS: 74230

== ENCOUNTER 2024-06-13 11:50 | Emergency (ER) | payer MEDICARE, BC ==
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
[2024-06-13 12:59] LABS: Basophils # (A) 0.1 k/uL (0-0.2); Basophils % (A) 1 %; Eosinophils # (A) 0.3 k/uL (0-0.7); Eosinophils % (A) 2 %; HCT 35.5 % (39.0-53.0); HGB 11.5 gm/dL (13.0-17.5); Lymphocytes # (A) 1.9 k/uL (1.0-4.8); Lymphocytes % (A) 16 %; MCH 27.6 pg (25.0-35.0); MCHC 32.5 g/dL (31.0-37.0); MCV 85.1 fL (80.0-100.0); Mean Platelet Volume 8.8; Monocytes % (A) 8 %; Neutrophils # (A) 8.2 k/uL (1.3-7.7); Neutrophils % (A) 71 %; Platelet Count 241 k/uL (150-450); RBC 4.18 m/uL (4.30-5.90); RDW 15.7 % (11.5-15.5); WBC 11.6 k/uL (3.8-10.6)
[2024-06-13] MEDS: SODIUM CHLORIDE 0.9% 1,000 ML IV STA (13:03)
[2024-06-13 13:09] LABS: ALT 17 U/L (4-49); AST 19 U/L (17-59); African American GFR (CKD) >90 (>60 ml/min/1.73 sqM); Albumin 3.6 g/dL (3.5-5.0); Alkaline Phosphatase 68 U/L (38-126); Amylase 49 U/L (30-110); Anion Gap 5 mmol/L; Blood Urea Nitrogen 38 mg/dL (9-20); Carbon Dioxide 25 mmol/L (22-30); Chloride 109 mmol/L (98-107); Glucose 123 mg/dL (74-99); Lipase 57 U/L (23-300); Magnesium 1.7 mg/dL (1.6-2.3); Non-African American GFR(CKD) >90 (>60 ml/min/1.73 sqM); Potassium 4.1 mmol/L (3.5-5.1); Sodium 139 mmol/L (137-145); Total Bilirubin 0.5 mg/dL (0.2-1.3); Total Protein 6.2 g/dL (6.3-8.2)
[2024-06-13 14:41] LABS: Appearance,Urine Clear (Clear); Bilirubin,Urine Negative (Negative); Blood,Urine Negative (Negative); Color,Urine Light Yellow; Glucose,Urine (UA) Negative (Negative); Ketones,Urine Negative (Negative); Leukocyte Esterase,Urine Negative (Negative); Nitrite,Urine Negative (Negative); Protein,Urine Negative (Negative); Specific Gravity,Urine 1.023 (1.001-1.035); Urobilinogen,Urine <2.0 mg/dL (<2.0)
[2024-06-13 15:42] VITALS: BP 123/71; PULSE 77; RESP 18; TEMP 98.1
== END 2024-06-13 15:42 | disposition home or self-care (01) ==
LOC: EC 11:50
DX: R19.7 Diarrhea, unspecified (principal); Z88.8 Allergy status to other drugs, medicaments and biological substances; Z91.018 Allergy to other foods
CPT/HCPCS: 36415; 80053; 81003; 82150; 83605; 83690; 83735; 85025; 87636; 99284

== ENCOUNTER 2024-09-13 10:46 | Day surgery (SDC) | payer MEDICARE, BC ==
[2024-09-13 11:19] LABS: Glucose,Whole Blood 167 mg/dL (70-110)
[2024-09-13 11:22] VITALS: BP 167/67; PULSE 66; RESP 16; TEMP 97.8
[2024-09-13] MEDS: LIDOCAINE 1% INJ 10MG/ML (20 ML MDV) SQ ONE (13:43)
[2024-09-13] MEDS: SODIUM CHLORIDE 0.9% 1,000 ML IV SCH (13:49)
--- NOTE | 2024-09-13 16:50 | P.EPPROC ---
- EP Procedure Note Electrophysiology Procedure Note: Loop monitor implant Primary physicians: [employer] Underwriter: Nolan Indication: First-degree AV block, bradycardia intermittent second-degree AV block, history of syncope Patient was brought to the EP lab in a fasting state. Written informed consent was obtained prior to the procedure. The left pectoral area was prepped and draped per protocol. Intravenous antibiotic was administered preoperatively. A subcutaneous Loop monitor was implanted successfully and the wound was closed per protocol. The device was programmed to detect significant hiral- arrhythmic and tachy-arrhythmic events, per protocol. Device and programming details: Syncope protocol program
== END 2024-09-13 14:41 | disposition home or self-care (01) ==
LOC: CATHEP 10:46
PROVIDERS: ATTEND Internal Medicine Clinical Cardiac Electrophysiology
DX: I44.0 Atrioventricular block, first degree (principal); R55 Syncope and collapse; I25.10 Atherosclerotic heart disease of native coronary artery without angina pectoris; E78.5 Hyperlipidemia, unspecified; I10 Essential (primary) hypertension; Z79.84 Long term (current) use of oral hypoglycemic drugs; I44.1 Atrioventricular block, second degree
CPT/HCPCS: 33285; C1764; J0690; J2003